=== PATIENT | male | born 1955 | race Caucasian/White ===

== ENCOUNTER → 2019-05-18 09:30 | Outpatient (CLI) | payer MEDICARE, SELFPAY ==
--- NOTE | 2019-05-18 09:34 | US_ITS ---
APPROVED REPORT Exam Type: Lower Extremity Segmental Pressures Route Delivery Manager: Kristina Law RVT Indications Claudication: Bilaterally Non-healing Ulcer: Rest Pain: Bilaterally History of Smoking ULCER LT HEEL X 2 MTHS, PRIOR AMPUTATION OF 2ND DIGIT LEFT FOOT Risk Factors Hypertension Hyperlipidemia Obesity Diabetes History of Smoking Pressures/Indices Right Indices Left Indices Brachial 188.00 mmHg Brachial 186.00 mmHg Low Thigh 255.00 mmHg 0.00 Low Thigh 173.00 mmHg 0.92 Calf 255.00 mmHg 0.00 Calf 162.00 mmHg 0.86 Ankle(PT) 158.00 mmHg 0.84 Ankle(PT) 140.00 mmHg 0.74 Ankle(DP) 178.00 mmHg 0.95 Ankle(DP) 185.00 mmHg 0.98 Digit 152.00 mmHg 0.81 Digit 165.00 mmHg 0.88 Findings RT MURTAZA:0.84 LT MURTAZA:0.74 RT TBI:0.81 LT TBI:0.88 WAVEFORMS DECREASED BILATERAL ANKLES PULSES DIMINISHED BILATERAL Conclusion RT MURTAZA:0.84 LT MURTAZA:0.74 RT TBI:0.81 LT TBI:0.88 WAVEFORMS DECREASED BILATERAL ANKLES PULSES DIMINISHED BILATERAL MILD TO MODERATE ARTERIAL DISEASE Medial calcinosis (rigid vessels) is suggested due to noncompressible thigh vessels on the right Electronically signed by : Emanuel Ferraro MD 05/18/2019 14:40:44
--- NOTE | 2019-05-18 10:02 | XR_ITS ---
PROCEDURE: XR FOOT WT BEARING RT 3V CLINICAL INDICATION: comparison views Pain, soft tissue ulceration COMPARISON: No exams were available for comparison FINDINGS: No fracture or dislocation. No lytic or blastic change. There is normal mineralization. There are mild osteoarthritic changes of the 1st MTP joint. There is a small calcaneal spur and a small enthesophyte at the Achilles insertion. Osteoarthritic changes are present at the ankle. Other findings:None. IMPRESSION: Degenerative changes otherwise negative Dictated by: Emanuel Ferraro MD 05/18/2019 10:49 Electronically signed by Emanuel Ferraro MD in [place] 05/18/2019 10:49
--- NOTE | 2019-05-18 10:02 | XR_ITS ---
PROCEDURE: XR FOOT WT BEARING LT 3V CLINICAL INDICATION: heel wound Pain, heel wound COMPARISON: No exams were available for comparison FINDINGS: There has been prior amputation at the distal aspect of the proximal phalanx of the 2nd toe There is a small calcaneal spur and a small enthesophyte at the Achilles insertion. Soft tissue gas is present along the posterior aspect of the heel and may be related to an area of ulceration. No underlying bony erosive process evident. Other findings:None. IMPRESSION: Soft tissue gas along the posterior aspect of the heel without obvious bony erosive process Dictated by: Emanuel Ferraro MD 05/18/2019 10:48 Electronically signed by Emanuel Ferraro MD in [place] 05/18/2019 10:48
[2019-05-18 10:52] LABS: Basophils # 0.1 K/mm3 (0-0.2); Basophils % 0.6 % (0.1-2.0); Eosinophils # 1.4 K/mm3 (0.0-0.4); Eosinophils % 14.6 % (0.1-12.0); Hematocrit 37.4 % (42.0-52.0); Hemoglobin 12.5 g/dL (14.1-18.0); Lymphocytes # 2.8 K/mm3 (0.7-4.5); Lymphocytes % 28.8 % (10-50); Mean Corpuscular HGB Conc 33.3 g/dL (31.8-35.4); Mean Corpuscular Hemoglobin 28.5 pg (27.0-31.2); Mean Corpuscular Volume 85.6 fl (80-94); Mean Platelet Volume 8.2 fl (7.4-10.4); Monocytes # 0.5 K/mm3 (0.1-1.0); Monocytes % 5.3 % (1.7-9.3); Neutrophils % 50.7 % (37.0-80.0); Platelet Count 396 K/mm3 (142-424); Red Blood Count 4.36 M/mm3 (4.60-6.20); Red Cell Distribution Width 13.1 % (11.5-17.5); White Blood Count 9.9 K/mm3 (4.8-10.8)
[2019-05-18 11:10] LABS: Hemoglobin A1C 9.5 % (4.0-6.0)
[2019-05-18 12:08] LABS: Erythrocyte Sedimentation Rate 77 mm/hr (0-20)
[2019-05-18 12:25] LABS: Alanine Aminotransferase 19 U/L (12-78); Albumin Level 3.8 g/dl (3.5-5.0); Albumin/Globulin Ratio 1.2 (1.1-1.8); Alkaline Phosphatase 120 U/L (38-126); Anion Gap 12.5 mEq/L (5-15); Aspartate Amino Transferase 21 U/L (17-59); Bilirubin,Total 0.4 mg/dl (0.2-1.3); Blood Urea Nitrogen 9 mg/dl (9-20); Calcium 9.4 mg/dl (8.4-10.2); Carbon Dioxide 30 mmol/L (22.0-30.0); Chloride 97 mmol/L (98-107); Estimated Glomerular Filt Rate 113 ml/min (>60); GFR (African American) 137 ML/MIN (>60); Globulin 3.2 g/dL (1.3-3.2); Glucose 233 mg/dl (74-100); Potassium 4.5 mmoL/L (3.5-5.1); Sodium 135 mmol/L (136-145)
[2019-05-18 12:30] LABS: C-Reactive Protein 15.5 mg/L (0-4)
== END ==
PROVIDERS: PCP Family Medicine; Visit Provider Podiatrist
DX: R09.89 Other specified symptoms and signs involving the circulatory and respiratory systems (principal); Z51.89 Encounter for other specified aftercare; E11.621 Type 2 diabetes mellitus with foot ulcer; L97.409 Non-pressure chronic ulcer of unspecified heel and midfoot with unspecified severity; Z79.84 Long term (current) use of oral hypoglycemic drugs; Z79.4 Long term (current) use of insulin
CPT/HCPCS: 36415; 73630; 80053; 83036; 85025; 85651; 86140; 93923

== ENCOUNTER → 2019-05-24 09:40 | Outpatient (CLI) | payer MEDICARE, SELFPAY ==
--- NOTE | 2019-05-24 09:40 | MR_ITS ---
PROCEDURE: MR FOOT LT WO/W CON CLINICAL INDICATION: diabetic ulcer Diabetic ulcer, pain in left heel, open wound COMPARISON: XR FOOT WT BEARING LT 3V from 05/18/2019 TECHNIQUE: Routine multiplanar multi echo sequences are performed without and with gadolinium enhancement. FINDINGS: Bone marrow edema is present within the posterior aspect of the calcaneus distal to the Achilles insertion. There is decreased T1 and increased T2 signal at this area with some ill definition of the posterior bony cortex. This is just deep to the underlying ulcer and is consistent osteomyelitis. There is some soft tissue swelling within the deep tissues at this area as well. There is also focal enhancement of this region. This involves the posterior and slightly lateral aspect of the posterior calcaneus. This is concerning for osteomyelitis. There is mild diffuse subcutaneous edema of the ankle posteriorly. No fracture or other significant anomalies evident. There are mild osteoarthritic changes of the 1st interphalangeal joint. IMPRESSION: The findings are concerning for osteomyelitis involving the posterior aspect of the calcaneus deep to the soft tissue ulceration Dictated by: Emanuel Ferraro MD 05/25/2019 10:47 Electronically signed by Emanuel Ferraro MD in [place] 05/25/2019 10:47
== END ==
PROVIDERS: PCP Family Medicine; Visit Provider Podiatrist
DX: E11.628 Type 2 diabetes mellitus with other skin complications (principal); L08.9 Local infection of the skin and subcutaneous tissue, unspecified; L89.620 Pressure ulcer of left heel, unstageable; Z79.4 Long term (current) use of insulin
CPT/HCPCS: 73720; A9576

== ENCOUNTER 2019-05-25 10:42 | Inpatient (IN) | payer MEDICARE, SELFPAY ==
[2019-05-25] VITALS (17 sets, daily range): BP systolic 140–187; BP diastolic 69–91; PULSE 66–82; RESP 16–18; TEMP 36.6–37.1; O2SAT 95–100; BMI 32.2; BMI 33.1
--- NOTE | 2019-05-25 | IR_ITS ---
APPROVED REPORT Patient Location: Inpatient [place] Operator: JANNY Mckee RT (R) PROCEDURES Right femoral arterial access Catheter placement in the distal abdominal aorta Distal abdominal aortography Bilateral iliofemoral angiography with bilateral runoff to the feet Catheter placement in the left superficial femoral artery Left superficial femoral artery selective angiogram with selective and unilateral runoff to the left foot Right femoral artery retrograde angiogram via the sheath with unilateral runoff to the right foot INDICATION Preoperative evaluation for poorly healing lower extremity osteomyelitis, Peripheral artery disease, [place] claudication class IV-V Informed consent was obtained prior to the procedure. COMPLICATIONS none Estimated Blood Loss: less than 10 mls TECHNIQUE 1% lidocaine used anesthetize the right groin the right femoral artery was accessed via the Salinger technique and a 5 [place] sheath this patient right femoral artery. The pigtail catheter was placed in the distal abdominal aorta and distal abdominal aortography was performed. Following this bilateral iliofemoral runoff was performed. Due to lack of contrast visualization in the bilateral lower extremities a 4 [place] BYNUM catheter was placed in the distal abdominal aorta and an advantage wire was used to cannulate the left superficial femoral artery. The BYNUM catheter was then advanced into the proximal portion of the left superficial femoral artery and unilateral angiography with runoff to the left foot was performed. Following this the apparatus was removed and unilateral runoff was then performed in the right groin via the sheath with runoff to the right foot. At the end of the procedure the patient was transferred to the postop holding area in stable condition following sheath removal. The sheath was removed in the Neurology Physician with good hemostasis. ANGIOGRAPHIC RESULTS The distal abdominal aorta is normal. The bilateral internal/external and common iliac arteries are normal. The bilateral common femoral arteries are normal. The bilateral profunda femoris arteries are normal. The bilateral superficial femoral arteries have mild [id number] atheromatous plaque The bilateral popliteal arteries have mild ims-xldn-iccjieyo atheromatous plaque The left anterior tibialis artery is patent in the proximal segment and then is subtotally occluded in its mid segment. There is a nice collateral network which then reconstitutes 2 cm distal to the occlusion and the anterior tibialis artery then continues with excellent flow to the left foot. The left peroneal artery is proximally occluded and has scant collateralization in the distal portion and supplies to a small degree the left foot. The left posterior tibialis artery is proximally occluded throughout its entire course with scant collateralization into the foot The right anterior tibialis artery has severe stenosis in the proximal segment and then is occluded. There is very scant recanalization as the anterior tibialis artery turns into the dorsalis pedis. The posterior tibialis artery is proximally occluded and never recannulate's distally. The left peroneal artery is proximally occluded and never recannulate's distally IMPRESSION Bilateral infrageniculate small vessel disease as described above all of which is too small for either surgical or percutaneous revascularization PLAN 1. Following surgery patient requires an aggressive physical therapy regimen in order to improve the distal scant collateralization. 2. Recommend aspirin 81 mg daily combined with Xarelto 2.5 twice daily 3. Aggressive control of kristine
--- NOTE | 2019-05-25 11:46 | XR_ITS ---
PROCEDURE: XR CHEST PORTABLE PICC PLAC CLINICAL HISTORY: Confirm PICC line placement COMPARISON: CXR CHEST(2 VIEWS-NOT PORTABLE) from 04/27/2013 FINDINGS: Normal heart size. No evidence of CHF. There is some mild prominence of the right hilum. This could be vascular overlap. Consider follow-up PA and lateral chest for further evaluation. The lungs are clear without infiltrates, suspicious nodules, or pleural effusions. Left upper extremity PICC line has been placed. The tip is in good position in the region of the superior vena cava. IMPRESSION: 1. PICC line in good position. 2. Mild prominence of the right hilum Dictated by: Emanuel Ferraro MD 05/25/2019 13:03 Electronically signed by Emanuel Ferraro MD in [place] 05/25/2019 13:03
--- NOTE | 2019-05-25 11:47 | HMH.CNCARD ---
History of Present Illness Consult date: 05/25/19 Requesting physician: Vazquez Randle Chief complaint: Osteomyelitis of left heel Additional Medical History:: 1. Diabetes mellitus type 2, treated for about 15 years A. Hemoglobin A1c, 9.5, 05/2019 2. History of remote tobacco use, discontinued greater than 10 years ago 3. Hyperlipidemia A. On statin therapy 4. PAD with mild to mod disease by MURTAZA, 05/2019 (left 0.7, right 0.8) but diminished waveforms noted (indicative of non-compressible vessels). A. Osteomyelitis of the left heel, 05/2019 5. Arthritis History of present illness: 63-year-old white male admitted by Dr. Randle with anticipation for surgical intervention of the osteomyelitis of his left heel tomorrow. Cardiology consulted for evaluation of the vascular flow in the left leg prior to surgery. Patient is a long-term diabetic with hemoglobin A1c of around 9. He denies any prior cardiac history and has not smoked for many years. He denies medication for hypertension but has been on hyperlipidemic medication for many years. EKG is sinus rhythm with no acute ST segment changes. [facility] History Medical History: Reports:: Diabetes Mellitus Type 2, Hyperlipidemia, Hypertension *Have you ever received a pneumonia vaccine?: Yes *Have you received a flu vaccine this season?: No Other Surgeries: Yes: Cholecystectomy, Skin Cancer Excision Amputation: Yes - *Social History Smoking Status: Never smoker Alcohol Intake: never *Occupational Status:: retired *Travel in the last 8 weeks: None Family Hx:: Unable to obtain Meds Home Medications Medication Instructions Recorded Confirmed Type aspirin 81 mg tablet,delayed 81 mg PO DAILY 05/18/19 05/25/19 History release atorvastatin 40 mg tablet PO 05/18/19 05/25/19 History collagenase clostridium histo. 250 1 applic TOPICAL QDAY #30 g 05/18/19 05/25/19 Rx unit/gram topical ointment doxycycline hyclate 100 mg tablet 100 mg PO BID #28 tab 05/18/19 05/25/19 Rx gabapentin 300 mg capsule 300 mg PO BID 05/18/19 05/25/19 History glimepiride 4 mg tablet mg PO 05/18/19 05/25/19 History insulin glargine 100 unit/mL SQ 05/18/19 05/25/19 History subcutaneous solution metformin 1,000 mg tablet mg PO 05/18/19 05/25/19 History Allergies Allergy/AdvReac Type Severity Reaction Status Date / Time No Known Allergies Allergy Verified 05/25/19 08:44 Review of Systems - Review of Systems Review of systems:: pertinent systems reviewed and negative unless documented below - *Cardiovascular Denies chest pain, Denies shortness of breath - *Respiratory Denies shortness of breath - *Gastrointestinal Denies loose stools, Denies nausea, Denies vomiting - *Genitourinary Denies blood in urine - *Musculoskeletal Reports joint pain, Denies back pain - *Neurologic Denies dizziness, Denies fainting, Denies tingling Exam Vital signs and Labs for Last 24 Hours: Temp Pulse Resp BP Pulse Ox 97.8 F 73 18 187/87 H 99 05/25/19 10:52 05/25/19 10:52 05/25/19 10:52 05/25/19 10:52 05/25/19 10:52 I & O for Last 24 hours: Intake & Output 05/22/19 05/23/19 05/24/19 05/25/19 11:59 11:59 11:59 11:59 Weight 218 lb 7 oz - *Routine HEENT Exam Head: Present: normocephalic Eye: Present: EOMI, PERRL ENT: Present: mucous membranes moist - *Routine Neck Exam Present: supple. Absent: JVD, carotid bruit - *Routine Respiratory Exam Present: CTA bilaterally. Absent: accessory muscle use, rales, rhonchi, wheezes - *Routine Cardiovascular Exam Present: RRR. Absent: murmur, gallop, rubs - *Routine Abdominal Exam Present: soft. Absent: tenderness, distended, guarding - *Routine Extremities Exam Present: edema. Absent: calf tenderness Comments: Edema of the left lower extremity below the knee noted. Patient's left foot and ankle are wrapped in bandage. - *Routine Neurological Exam Present: alert, oriented X3, moving a
--- NOTE | 2019-05-25 12:02 | CA_ITS ---
APPROVED REPORT EXAM: Comprehensive 2D, Doppler, and color-flow Echocardiogram Gynaecological Oncologist: Johana Mcmahon CRT Ht: 5 ft 9 in Wt: 218lbs BSA: 2.14 BP: 168/78 mmHg Indications: Diabetes, Obesity, Hyperlipidemia, Hypertension/HDD, pre op amputation of left heel in AM, PAD 2D Dimensions LVOT 1.87 cm (M/F) 1.5-2.5 M-Mode Dimensions RVDd 2.05 cm (0.9-2.6) LVDd 5.04 cm (3.5-5.7) LVDs 3.44 cm (3.5-5.7) IVSd 1.61 cm (0.6-1.1) PWd 0.74 cm (0.6-1.1) EF (Teich) 47.30% FS 23.80% EDV (Teich) 120.50 mL ESV (Teich) 63.50 mL LV Diastology E/A Ratio 0.62 Mitral Valve MV A Velocity 106.00 (40-130 cm/s) Left Ventricle Left atrium is mildly enlarged, left ventricle is normal size, mild concentric left ventricular hypertrophy, visually estimated ejection fraction 55% with no regional wall motion abnormality, grade 1 diastolic dysfunction seen without tissue Doppler evidence of raise left atrial pressure. Right atrium right ventricular mildly enlarged with normal contractility. Aortic Valve Aortic valve is thickened and calcified leaflet continue to display good mobility, there is no aortic stenosis or aortic insufficiency. Mitral Valve Mitral valve is grossly normal, there is mild mitral regurgitation. Tricuspid Valve Tricuspid valve is grossly normal, there is mild tricuspid regurgitation, calculated right ventricular systolic pressure is 43 mmHg. Pulmonic Valve Pulmonic valve is poorly visualized. Great Vessels Aortic root is normal size. Pericardium No significant pericardial effusion noted. Conclusion 1. Mildly enlarged left atrium, normal left ventricular size, mild concentric left ventricular hypertrophy, visually estimated ejection fraction 55% with no regional wall motion abnormality, grade 1 diastolic dysfunction seen without tissue Doppler evidence of raise left atrial pressure. 2. Mildly enlarged right ventricle with normal contractility. 3. Mild mitral and tricuspid regurgitation, calculated right ventricular systolic pressure is 43 mmHg. 4. No significant pericardial effusion noted. Electronically signed by : Blaine Mcconnell, 05/25/2019 17:34:14
--- NOTE | 2019-05-25 12:08 | HMH.PHACONS ---
- Pharmacy Consult Date: 05/25/19 Time: 12:08 Referring provider: DR. UPTON Reason for Consult:: VANCOMYCIN DOSING Allergies and ADEs:: Allergies Allergy/AdvReac Type Severity Reaction Status Date / Time No Known Allergies Allergy Verified 05/25/19 08:44 Home Medications:: Home Medications Medication Instructions Recorded Confirmed Type aspirin 81 mg tablet,delayed 81 mg PO DAILY 05/18/19 05/25/19 History release atorvastatin 40 mg tablet PO 05/18/19 05/25/19 History collagenase clostridium histo. 250 1 applic TOPICAL QDAY #30 g 05/18/19 05/25/19 Rx unit/gram topical ointment doxycycline hyclate 100 mg tablet 100 mg PO BID #28 tab 05/18/19 05/25/19 Rx gabapentin 300 mg capsule 300 mg PO BID 05/18/19 05/25/19 History glimepiride 4 mg tablet mg PO 05/18/19 05/25/19 History insulin glargine 100 unit/mL SQ 05/18/19 05/25/19 History subcutaneous solution metformin 1,000 mg tablet mg PO 05/18/19 05/25/19 History Height: 1.75 m Weight: 99.082 kg Medical History: Reports:: Diabetes Mellitus Type 2, Hyperlipidemia, Hypertension Assessment and Plan (1) Osteomyelitis of left foot Current visit: Yes Status: Acute Category: Medical Code(s): M86.9 - Osteomyelitis, unspecified (2) Diabetes mellitus type 2 in nonobese Current visit: Yes Status: Acute Category: Medical Code(s): E11.9 - Type 2 diabetes mellitus without complications (3) Hyperlipidemia Current visit: Yes Status: Acute Category: Medical Code(s): E78.5 - Hyperlipidemia, unspecified (4) Elevated blood pressure reading Current visit: Yes Status: Acute Category: Medical Code(s): R03.0 - Elevated blood-pressure reading, without diagnosis of hypertension (5) Diabetic neuropathy associated with type 2 diabetes mellitus Current visit: No Status: Acute Qualifiers: Diabetes mellitus complication detail: diabetic polyneuropathy Qualified Code(s): E11.42 - Type 2 diabetes mellitus with diabetic polyneuropathy Category: Medical Code(s): E11.40 - Type 2 diabetes mellitus with diabetic neuropathy, unspecified (6) History of amputation of lesser toe of left foot Current visit: No Status: Acute Category: Surgical Code(s): Z89.422 - Acquired absence of other left toe(s) (7) Obesity, Class I, BMI 30-34.9 Current visit: No Status: Chronic Category: Medical Code(s): E66.9 - Obesity, unspecified (8) PAD (peripheral artery disease) Current visit: No Status: Chronic Category: Medical Code(s): I73.9 - Peripheral vascular disease, unspecified - Assessment and plan all Dx Assessment and Plan for all problems:: BASED ON PATIENT FACTORS, RECOMMEND INITIATING VANCOMYCIN AT 2,000MG IV EVERY 12 HOURS. PHARMACY WILL OBTAIN TROUGH LEVEL PRIOR TO FOURTH DOSE AND WILL ADJUST DOSE/INTERVAL APPROPRIATE AT THAT POINT. -ROMANA WAITE, [place]
[2019-05-25 12:14] LABS: Chloride 99 mmol/L (98-107); Potassium 4.4 mmoL/L (3.5-5.1); Sodium 136 mmol/L (136-145)
[2019-05-25 12:16] LABS: Alanine Aminotransferase 17 U/L (12-78); Aspartate Amino Transferase 23 U/L (17-59); Blood Urea Nitrogen 10 mg/dl (9-20); Creatinine Clearance Estimated 103 mL/min (50-200); Estimated Glomerular Filt Rate 113 ml/min (>60); GFR (African American) 137 ML/MIN (>60)
[2019-05-25 12:17] LABS: Albumin Level 3.7 g/dl (3.5-5.0); Albumin/Globulin Ratio 1.1 (1.1-1.8); Alkaline Phosphatase 105 U/L (38-126); Anion Gap 12.4 mEq/L (5-15); Bilirubin,Total 0.5 mg/dl (0.2-1.3); Calcium 9.1 mg/dl (8.4-10.2); Carbon Dioxide 29 mmol/L (22.0-30.0); Globulin 3.5 g/dL (1.3-3.2); Glucose 188 mg/dl (74-100); Total Protein,Serum 7.2 g/dl (6.3-8.2)
[2019-05-25 12:28] LABS: Basophils % 0.3 % (0.1-2.0); Eosinophils # 0.9 K/mm3 (0.0-0.4); Eosinophils % 8.7 % (0.1-12.0); Hematocrit 36.8 % (42.0-52.0); Lymphocytes # 3.4 K/mm3 (0.7-4.5); Lymphocytes % 33.6 % (10-50); Mean Corpuscular HGB Conc 32.7 g/dL (31.8-35.4); Mean Corpuscular Hemoglobin 28.6 pg (27.0-31.2); Mean Corpuscular Volume 87.6 fl (80-94); Mean Platelet Volume 8.5 fl (7.4-10.4); Monocytes # 0.5 K/mm3 (0.1-1.0); Monocytes % 4.5 % (1.7-9.3); Neutrophils # 5.3 K/mm3 (1.8-7.8); Neutrophils % 52.9 % (37.0-80.0); Platelet Count 396 K/mm3 (142-424); Red Cell Distribution Width 13.4 % (11.5-17.5)
[2019-05-25 13:13] LABS: POC Glucose,Bedside 177 (70-110)
--- NOTE | 2019-05-25 13:31 | HMH.PHAINT ---
MEDICATION RECONCILIATION COMPLETE. OBTAINED MEDICATION LIST FROM PROVIDER AND CROSS REFERENCED WITH PHARMACY FILL HISTORY. SPOKE WITH PATIENT TO CLARIFY LANTUS DOSE (35 UNITS QPM BETWEEN 7 AND 8 PM), GABAPENTIN DOSE, DOXYCYCLINE, SANTYL, AND ALIGN USE. PATIENT DENIES USING ALIGN DUE TO IT NOT HELPING. UPDATED MEDICATION LIST ACCORDINGLY.
--- NOTE | 2019-05-25 14:15 | HMH.PHAVTE ---
[facility] Pharmacy VTE Monitoring - Patient Demographics Admission date: 05/25/19 Report Date: 05/25/19 Time: 14:15 Allergies/Adverse Reactions: Patient Allergies No Known Allergies Allergy (Verified 05/25/19 08:44) Height: 1.75 m Weight: 99.082 kg Patient Problems: Current Active Problems Osteomyelitis of left foot (Acute) Diabetes mellitus type 2 in nonobese (Acute) Hyperlipidemia (Acute) Elevated blood pressure reading (Acute) - VTE Risk Labs: VTE Related Lab Results Hgb 12.0 g/dL (14.1-18.0) L 05/25/19 11:40 Hct 36.8 % (42.0-52.0) L 05/25/19 11:40 Plt Count 396 K/mm3 (142-424) 05/25/19 11:40 BUN 10 mg/dl (9-20) 05/25/19 11:40 Creatinine 0.70 mg/dl (0.66-1.25) 05/25/19 11:40 Estimated Creat Clear 103 mL/min (50-200) 05/25/19 11:40 Clinical Trial Participant: No - Prophylaxis VTE Prophylaxis Ordered?: Yes Types of VTE Prophylaxis: TEDS Knee High (TO UNAFFECTED LEG)
--- NOTE | 2019-05-25 14:25 | HMH.ORTHOCON ---
*Admission Date: 05/25/19 *Reason for consult:: Left heel osteomyelitis *History of present illness: Mr. Murray presented to my office for a follow up appointment for a wound on his left heel. He reports no changes to the heel. His has been doing daily dressing changes with santyl and DSD. He continues to take the doxycycline 100mg BID and reports no problems with the antibiotic. He recently had an MURTAZA and MRI and is here to review the tests. Upon office visit exam, worsening edema and erythema noted to the heel. Aminta Ely APRN discussed plan of care with PCP team, Dr. Randle who agreed to admit the patient for cardiac workup and evaluation of abnormal ABIs. Podiatry plans for left heel wound debridement, bone biospy and possible wound vac application tomorrow if cardiolgoy clears. Review of Systems - Review of Systems Review of systems:: pertinent systems reviewed and negative unless documented below - Constitutional Reports fatigue, Denies chills - Eyes Reports change in vision - ENT Denies abnormal hearing - *Cardiovascular Denies chest pain - *Respiratory Denies cough - *Gastrointestinal Denies change in bowel habits, Denies vomiting - *Genitourinary Denies difficulty urinating - *Musculoskeletal Reports joint swelling - Integumentary/Breasts Reports hair loss, Reports change in hair, Reports nail changes, Reports change in skin color, Reports dry skin, Reports non-healing lesions, Reports skin ulcer - *Neurologic Reports tingling/numbness/burning sensations, Denies dizziness, Denies fainting, Denies tingling - Psychiatric Denies abnormal sleep pattern - Endocrine Reports increased thirst - Hematologic/Lymphatic Denies easy bleeding - Allergic/Immunologic Reports GI upset with certain foods [facility] History I have reviewed the patient's past medical history: Yes Medical History: Reports:: Diabetes Mellitus Type 2, Hyperlipidemia, Hypertension *Have you ever received a pneumonia vaccine?: Yes *Have you received a flu vaccine this season?: No Other Surgeries: Yes: Cholecystectomy, Skin Cancer Excision Amputation: Yes (L 2nd toe) - *Social History Smoking Status: Never smoker Alcohol Intake: never *Occupational Status:: retired *Travel in the last 8 weeks: None Family Hx:: Unable to obtain Meds Home Medications Medication Instructions Recorded Confirmed Type aspirin 81 mg tablet,delayed 81 mg PO DAILY 05/18/19 05/25/19 History release atorvastatin 40 mg tablet 40 mg PO DAILY 05/18/19 05/25/19 History gabapentin 300 mg capsule 600 mg PO BID 05/18/19 05/25/19 History glimepiride 4 mg tablet 4 mg PO DAILY 05/18/19 05/25/19 History insulin glargine 100 unit/mL 35 units SQ PM 05/18/19 05/25/19 History subcutaneous solution metformin 1,000 mg tablet 1,000 mg PO BID 05/18/19 05/25/19 History Collagenase Clostridium Hist. 1 applic TOPICAL DAILY 05/25/19 05/25/19 History [Santyl] Doxycycline Hyclate [Vibra-Tab 100 mg PO BID 05/25/19 05/25/19 History 100mg tablet] Vit A/Vit C/Vit E/Zinc/Copper 1 tab PO DAILY 05/25/19 05/25/19 History [Preservision Areds Tablet] Allergies Allergy/AdvReac Type Severity Reaction Status Date / Time No Known Allergies Allergy Verified 05/25/19 08:44 Exam Vital signs and Labs for Last 24 Hours: Temp Pulse Resp BP Pulse Ox 97.8 F 73 18 187/87 H 99 05/25/19 10:52 05/25/19 10:52 05/25/19 10:52 05/25/19 10:52 05/25/19 10:52 Laboratory Results - last 24 hr 05/25/19 11:40: WBC 10.0, RBC 4.20 L, Hgb 12.0 L, Hct 36.8 L, MCV 87.6, MCH 28.6, MCHC 32.7, RDW 13.4, Plt Count 396, MPV 8.5, Neut % (Auto) 52.9, Lymph % (Auto) 33.6, [place] % (Auto) 4.5, Eos % (Auto) 8.7, Baso % (Auto) 0.3, Neut # (Auto) 5.3, Lymph # (Auto) 3.4, [place] # (Auto) 0.5, Eos # (Auto) 0.9 H, Baso # (Auto) 0.0 05/25/19 11:40: Sodium 136, Potassium 4.4, Chloride 99, Carbon Dioxide 29, Anion Gap 12.4, BUN 10, Creatinine 0.70, Estimated Creat Clear 103, Estimated
[2019-05-25 15:25] LABS: Erythrocyte Sedimentation Rate 76 mm/hr (0-20)
--- NOTE | 2019-05-25 15:47 | PC.NURSE ---
Spoke with Dr. Lin regarding surgery in AM that was scheduled pre hospital stay- she said to call Kamille Rawls and cancel surgery.
--- NOTE | 2019-05-25 16:02 | PC.NURSE ---
Spoke with Terrence from Dr. Reed office they have decided to schedule patients surgery for tomorrow at 11:15.
--- NOTE | 2019-05-25 16:15 | HMH.HP ---
*Admission Date: 05/25/19 <Katlyn Antunez 05/25/19 16:57> *Chief complaint: Nonhealing left heel wound <Katlyn Antunez 05/25/19 16:57> *History of present illness: Mr. Murray presented to my office for a follow up appointment for a wound on his left heel. He reports no changes to the heel. His has been doing daily dressing changes with santyl and DSD. He continues to take the doxycycline 100mg BID and reports no problems with the antibiotic. He recently had an MURTAZA and MRI and is here to review the tests. Upon office visit exam, worsening edema and erythema noted to the heel. Aimnta Ely APRN discussed plan of care with PCP team, Dr. Randle who agreed to admit the patient for cardiac workup and evaluation of abnormal ABIs. Podiatry plans for left heel wound debridement, bone biospy and possible wound vac application tomorrow if cardiolgoy clears. The above as per Dr. Lin At time of this assessment patient is lying comfortably in the bed after procedure. He is thirsty and hungry. He denies pain in the left foot. He is breathing easily without chest pain. He has been seen by cardiology with the following assessment/plan: Left lower extremity runoff of the left leg with potential intervention to maximize blood flow in anticipation of podiatry surgery of the left heel 05/26/2019. He has been started on carvedilol. PICC line has been inserted for IV antibiotics. He will have an EKG and an echocardiogram. <HarmonyKatlyn 05/25/19 16:57> [facility] History Medical History: Reports:: Diabetes Mellitus Type 2, Gastroesophageal Reflux Disease(GERD), Hyperlipidemia, Hypertension, Kidney Stones <HarmonyKatlyn 05/25/19 16:57> *Have you ever received a pneumonia vaccine?: Yes <Katlyn Antunez 05/25/19 16:57> *Have you received a flu vaccine this season?: No <Katlyn Antunez 05/25/19 16:57> Comment:: Diabetic neuropathy and retinopathy; lumbar disc herniation. <Katlyn Antunez 05/25/19 16:57> Other Surgeries: Yes: Cholecystectomy, Skin Cancer Excision <Katlyn Antunez 05/25/19 16:57> Amputation: Yes (L 2nd toe) <Katlyn Antunez 05/25/19 16:57> Comment: Cyst removal; stent for kidney stone removal 2009; second toe amputation on left foot. <HarmonyKatlyn Estiven 05/25/19 16:57> - *Social History Smoking Status: Never smoker <AntunezKatlyn Estiven 05/25/19 16:57> Alcohol Intake: never <AntunezKatlyn 05/25/19 16:57> *Occupational Status:: retired <AntunezKatlyn 05/25/19 16:57> *Travel in the last 8 weeks: None <Katlyn Antunez Estiven 05/25/19 16:57> Family Hx:: Unable to obtain <Katlyn Antunez Estiven 05/25/19 16:57> Review of Systems - Constitutional Denies headache(s), Denies weakness <AntunezKatlyn 05/25/19 16:57> - Eyes Reports change in vision (Due to his diabetes) <Antunez,Katlyn Estiven 05/25/19 16:57> - ENT Denies ear pain, Denies sore throat <AntunezKatlyn 05/25/19 16:57> - *Cardiovascular Denies chest pain, Denies shortness of breath, Denies irregular heart rhythm, Denies leg swelling <AntunezKatlyn 05/25/19 16:57> - *Respiratory Denies chest congestion, Denies cough, Denies shortness of breath <Katlyn Antunez 05/25/19 16:57> - *Gastrointestinal Reports bloating, Reports change in bowel habits, Reports constipation, Reports heartburn, Reports loose stools, Reports nausea, Denies abdominal pain, Denies vomiting <AntunezKatlyn Estiven 05/25/19 16:57> - *Genitourinary Denies difficulty urinating <Antunez,Katlyn 05/25/19 16:57> - *Musculoskeletal Reports abnormal walking (Walks with the support of a crutch) <Antunez,Katlyn 05/25/19 16:57> - *Neurologic Reports tingling/numbness/burning sensations, Denies abnormal hearing, Denies dizziness, Denies frequent falls, Denies fainting, Denies tingling <HarmonyKatlyn - 05/25/19 16:57> Meds Home Medications Medication Instructions Recorded Confirmed Type aspirin 81 mg tablet,delayed 81 mg PO DAILY 05/18/19 05/25/19 History release atorvastatin 40 mg tablet 40 mg PO DA
[2019-05-25 18:09] LABS: POC Glucose,Bedside 132 (70-110)
--- NOTE | 2019-05-25 18:55 | PC.NURSE ---
PATIENT ARRIVED ON FLOOR AT 1050AM. IMMEDIATELY PICC LINE WAS ORDERED AND PLACED, XRAY AT BEDSIDE FOR CONFIRMATION, PATIENT TAKEN TO [facility] FOR PROCEDURE. PATIENT RETURNED TO FLOOR AT 1600. PATIENT A&O X4, LUNGS DIMINSHED, PULSES EQUAL, CATH SITE CLEAN AND DRY. PATIENT REMAINED FLAT UNTIL 1700. PATIENT AMBULATED TO RESTROOM WITH 2X ASSIST. PATIENT BECAME UNSTABLE ON FEET AFTER USING RESTROOM. PATIENT ASSISTED BACK TO BED. PATIENT SAT ON SIDE OF BED TO EAT DINNER AND TOLERATED WELL. AT 1845 PATIENT CALLED OUT TO USE RESTROOM. WITH STANDBY ASSIST PATIENT AMBULATED TO RESTROOM. PATIENT WAS INSTRUCTED TO PULL THE LINE WHEN FINISHED. THIS RN WENT INTO ROOM AND PATIENT WAS STILL IN RESTROOM, THIS RN INQUIRED IF PATIENT WAS OKAY AND PATIENT STATED YES. THIS RN WENT BACK INTO ROOM 2 MIN LATER AND PATIENT WAS SITTING ON SIDE OF BED. THIS RN EDUCATED PATIENT ABOUT CALLING FOR ASSISTANCE WHEN AMBULATING. PATIENT VERBALIZED AN UNDERSTANDING. NO OTHER CONCERNS AT THIS TIME.
[2019-05-25 21:07] LABS: POC Glucose,Bedside 216 (70-110)
[2019-05-26] VITALS (25 sets, daily range): BP systolic 120–178; BP diastolic 67–88; PULSE 67–78; RESP 16–20; TEMP 36.6–43; O2SAT 94–99; BMI 33.2; BMI 33.3
--- NOTE | 2019-05-26 04:40 | PC.NURSE ---
Pt does not appear satisfied with poc, often remarking in negative ways. Example, during 2100 med pass, pt ask if he had any pain medication, I advised none ordered but I could call MD to get some. Pt replied, No I don't want you to call, I'm not begging them for it, it is on my medication list and they know I take it and I need it, so not asking for it. Continued discussion asking again to call the doctor for pain med, pt replied, No. Post op vital signs remained close in number with BP running on the higher side, but came down to 140/73 at 2215. Right groin site dressing c.d.i, surrounding area soft, no hematoma noted. Discussed being ordered NPO after midnight, pt replied, I guess the are going to starve me to all day again tomorrow. Advised surgery scheduled for 1130, could be earlier and needed to be prepared. Pt replied, I didn't get to eat today until 1630, so I'll have to go through that again. Pt also c/o being cold and not being able to sleep. Warm blankets offered, pt did not want any. I already have a pile of blankets on now, I don't need anymore. 0100 ABX infused well with no problems, -216, medicated per APR. Pt presently sleeping with no objective s/s of pain or distress identified, monitoring continues.
[2019-05-26 06:17] LABS: POC Glucose,Bedside 142 (70-110)
--- NOTE | 2019-05-26 08:23 | HMH.ACPN2 ---
<Alta Zaidi - Last Filed: 05/26/19 08:23> Internal Medicine - PN: Subj *Date: 05/26/19 *Time: 08:23 Interval history: Patient is upset that some of his home medications were not reordered last night, particularly his gabapentin. He states he is having pain in his left foot and in his back and his legs as well. He did not rest well last night. Patient is supposed to be scheduled for a left heel wound debridement today by Dr. Lin. Exam Vital signs and Labs for Last 24 Hours: Temp Pulse Resp BP Pulse Ox 98.2 F 72 18 178/80 H 98 05/26/19 04:00 05/26/19 04:00 05/26/19 04:00 05/26/19 04:00 05/26/19 04:00 Laboratory Results - last 24 hr 05/25/19 11:40: WBC 10.0, RBC 4.20 L, Hgb 12.0 L, Hct 36.8 L, MCV 87.6, MCH 28.6, MCHC 32.7, RDW 13.4, Plt Count 396, MPV 8.5, Neut % (Auto) 52.9, Lymph % (Auto) 33.6, [place] % (Auto) 4.5, Eos % (Auto) 8.7, Baso % (Auto) 0.3, Neut # (Auto) 5.3, Lymph # (Auto) 3.4, [place] # (Auto) 0.5, Eos # (Auto) 0.9 H, Baso # (Auto) 0.0, ESR 76 H 05/25/19 11:40: Sodium 136, Potassium 4.4, Chloride 99, Carbon Dioxide 29, Anion Gap 12.4, BUN 10, Creatinine 0.70, Estimated Creat Clear 103, Estimated GFR 113, Est GFR ( Amer) 137, Glucose 188 H, Calcium 9.1, Total Bilirubin 0.5, AST 23, ALT 17, Alkaline Phosphatase 105, Total Protein 7.2, Albumin 3.7, Globulin 3.5 H, Albumin/Globulin Ratio 1.1 05/25/19 13:04: POC Glucose 177 H 05/25/19 17:51: POC Glucose 132 H 05/25/19 20:26: POC Glucose 216 H 05/26/19 06:09: POC Glucose 142 H I & O for Last 24 hours: Intake & Output 05/23/19 05/24/19 05/25/19 05/26/19 11:59 11:59 11:59 11:59 Intake Total 480 / 480 Balance 480 / 480 Weight 224 lb 8 oz 224 lb 8 oz Radiology Reports for the Last 24 Hours: Echo Conclusion 1. Mildly enlarged left atrium, normal left ventricular size, mild concentric left ventricular hypertrophy, visually estimated ejection fraction 55% with no regional wall motion abnormality, grade 1 diastolic dysfunction seen without tissue Doppler evidence of raise left atrial pressure. 2. Mildly enlarged right ventricle with normal contractility. 3. Mild mitral and tricuspid regurgitation, calculated right ventricular systolic pressure is 43 mmHg. 4. No significant pericardial effusion noted. - Constitutional no acute distress - *Routine Respiratory Exam Present: CTA bilaterally - *Routine Cardiovascular Exam Present: RRR - *Routine Abdominal Exam Present: soft, normoactive bowel sounds. Absent: tenderness - *Routine Extremities Exam Present: edema (LLE 2+). Absent: cyanosis, clubbing - *Routine Skin Exam Comments: left heel with bandage in place - *Routine Neurological Exam Present: alert, oriented X3 Assessment and Plan (1) PAD (peripheral artery disease) Status: Chronic Category: Medical Code(s): I73.9 - Peripheral vascular disease, unspecified (2) Osteomyelitis of left foot Status: Acute Category: Medical Code(s): M86.9 - Osteomyelitis, unspecified (3) Hyperlipidemia Status: Acute Category: Medical Code(s): E78.5 - Hyperlipidemia, unspecified (4) Elevated blood pressure reading Status: Acute Category: Medical Code(s): R03.0 - Elevated blood-pressure reading, without diagnosis of hypertension (5) Diabetic neuropathy associated with type 2 diabetes mellitus Status: Acute Qualifiers: Diabetes mellitus complication detail: diabetic polyneuropathy Qualified Code(s): E11.42 - Type 2 diabetes mellitus with diabetic polyneuropathy Category: Medical Code(s): E11.40 - Type 2 diabetes mellitus with diabetic neuropathy, unspecified (6) History of amputation of lesser toe of left foot Status: Acute Category: Surgical Code(s): Z89.422 - Acquired absence of other left toe(s) (7) Obesity, Class I, BMI 30-34.9 Status: Chronic Category: Medical Code(s): E66.9 - Obesity, unspecified (8) Diabetic foot infection Status: Acute Category: Medica
--- NOTE | 2019-05-26 09:31 | HMH.ANESCL ---
[facility] Anesthesia Checklist - Patient Identification Patient Identification: Arm Band, Verbal (Name & ) - Structural Data Admitted From: Inpatient Planned Operative Procedure/s: left heel debridement Consent for Planned Operative Procedure(s) Verified: Yes Verified Documents: History and Physical - NPO Status Verified Time NPO: 00:00 - Additional verifications Patient : No Anesthesia Reactions: No Hx Blood Transfusions: No Blood Transfusion Reaction: No Cephalosporin Allergy: No Previous Colonoscopy: No - Cardiovascular Assessment Heart Sounds: S1 & S2 Pulse Strength: Baseline Pulse Rhythm: Regular Peripheral Edema: No - Airway Assessment C-Spine Mobility Assessed: Yes TMJ Mobility Assessed: Yes Dentition: Edentulous - Neurological Assessment Level of Consciousness: Awake, Alert, Appropriate Hx Seizures: No Numbness or tingling in extremities: No - Anesthesia Plan Anesthesia Risk discussed: Yes Anesthesia Plan: Verified ASA Class: III Anesthesia Type: General [facility] History I have reviewed the patient's past medical history: Yes Medical History: Reports:: Cancer (skin), Diabetes Mellitus Type 2, Gastroesophageal Reflux Disease(GERD), Hyperlipidemia, Hypertension, Kidney Stones *Have you ever received a pneumonia vaccine?: Yes *Have you received a flu vaccine this season?: No Anesthesia experience/problems:: none Other Surgeries: Yes: Cholecystectomy, Skin Cancer Excision, Other Amputation: Yes (L 2nd toe) - *Social History Smoking Status: Former smoker Alcohol Intake: never Substance Use Type: other *Occupational Status:: retired, disabled Housing: house Household Members: spouse, children *Travel in the last 8 weeks: None Family Hx:: Unable to obtain
--- NOTE | 2019-05-26 10:30 | ECG_ITS ---
APPROVED REPORT Exam: Resting ECG HR:76 bpm ECG Measurements Heart Rate 76 AXES RI 96 P 39 QRSd 90 QRS 45 QT 418 T -18 QTc 470 <Conclusion> Sinus rhythm with short RI Poor R Wave Progression T wave abnormality, consider inferior ischemia Abnormal ECG Electronically signed by : Jovany Bowman, 05/26/2019 16:26:05
--- NOTE | 2019-05-26 10:36 | HMH.PNCARD ---
Subjective Date: 05/26/19 Time: 10:30 Principal diagnosis: PAD, Let heel wound Interval history: This is a 63-year-old gentleman who was admitted to the hospital for a left heel wound. He is scheduled to undergo left heel debridement today with Dr. Lin. The patient did undergo a runoff yesterday which showed bilateral infrageniculate small vessel disease which is too small for percutaneous or surgical intervention. Following his left heel debridement it is recommended that the patient go on aspirin 81 mg daily combined with Xarelto 2.5 mg daily. This morning he denies any chest pain or pressure. He denies any shortness of breath. He denies any fever, chills, nausea, vomiting, diarrhea, PND, orthopnea or cough. He states that he does have some edema in his left leg from his wound on his left foot. He is complaining of pain in his left leg. His gabapentin did not get started while he is in the hospital and he is upset about that. His primary care provider is taking care of this. No cardiac complaints today. Exam Vital signs and Labs for Last 24 Hours: Temp Pulse Resp BP Pulse Ox 98.2 F 72 18 178/80 H 98 05/26/19 04:00 05/26/19 04:00 05/26/19 04:00 05/26/19 04:00 05/26/19 04:00 Laboratory Results - last 24 hr 05/25/19 11:40: WBC 10.0, RBC 4.20 L, Hgb 12.0 L, Hct 36.8 L, MCV 87.6, MCH 28.6, MCHC 32.7, RDW 13.4, Plt Count 396, MPV 8.5, Neut % (Auto) 52.9, Lymph % (Auto) 33.6, [place] % (Auto) 4.5, Eos % (Auto) 8.7, Baso % (Auto) 0.3, Neut # (Auto) 5.3, Lymph # (Auto) 3.4, [place] # (Auto) 0.5, Eos # (Auto) 0.9 H, Baso # (Auto) 0.0, ESR 76 H 05/25/19 11:40: Sodium 136, Potassium 4.4, Chloride 99, Carbon Dioxide 29, Anion Gap 12.4, BUN 10, Creatinine 0.70, Estimated Creat Clear 103, Estimated GFR 113, Est GFR ( Amer) 137, Glucose 188 H, Calcium 9.1, Total Bilirubin 0.5, AST 23, ALT 17, Alkaline Phosphatase 105, Total Protein 7.2, Albumin 3.7, Globulin 3.5 H, Albumin/Globulin Ratio 1.1 05/25/19 13:04: POC Glucose 177 H 05/25/19 17:51: POC Glucose 132 H 05/25/19 20:26: POC Glucose 216 H 05/26/19 06:09: POC Glucose 142 H I & O for Last 24 hours: Intake & Output 05/23/19 05/24/19 05/25/19 05/26/19 23:59 23:59 23:59 23:59 Intake Total 240 / 480 240 / 240 Balance 240 / 480 240 / 240 Weight 224 lb 8 oz 224 lb 8 oz Narrative: Echo shows: 1. Mildly enlarged left atrium, normal left ventricular size, mild concentric left ventricular hypertrophy, visually estimated ejection fraction 55% with no regional wall motion abnormality, grade 1 diastolic dysfunction seen without tissue Doppler evidence of raise left atrial pressure. 2. Mildly enlarged right ventricle with normal contractility. 3. Mild mitral and tricuspid regurgitation, calculated right ventricular systolic pressure is 43 mmHg. 4. No significant pericardial effusion noted. Runoff shows: Bilateral infrageniculate small vessel disease as described above all of which is too small for either surgical or percutaneous revascularization PLAN 1. Following surgery patient requires an aggressive physical therapy regimen in order to improve the distal scant collateralization. 2. Recommend aspirin 81 mg daily combined with Xarelto 2.5 twice daily 3. Aggressive control of diabetes 4. LDL less than 55 5. Avoidance of tobacco products - Constitutional no acute distress, obese - *Routine HEENT Exam Head: Present: normocephalic, atraumatic Eye: Present: EOMI, PERRL ENT: Present: mucous membranes moist - *Routine Neck Exam Present: supple, full ROM, normal carotid upstroke. Absent: JVD, carotid bruit, lymphadenopathy - *Routine Respiratory Exam Present: CTA bilaterally - *Routine Cardiovascular Exam Present: RRR, Normal S1, Normal S2. Absent: murmur - *Routine Abdominal Exam Present: soft, normoactive bowel sounds. Absent: tenderness, distended - *Routine Extremities Exam Present: edema (Edema to the left lower extremity), full RO
--- NOTE | 2019-05-26 11:17 | HMH.ORTHPN ---
Subjective Date: 05/26/19 <Shelbi Ely - 05/26/19 12:56> Time: 08:20 <Shelbi Ely - 05/26/19 12:56> Principal diagnosis: PAD, Let heel wound <Shelbi Ely - 05/26/19 12:56> Interval history: Patient doing well this morning, no complaints throughout the night. Patient is NPO for his surgery sometime this morning. Dressing is clean dry and intact to his left heel. From what I could see it didn't look like the cellulitis and redness had extended beyond the purple marker tracing's from yesterday, which is a good. Patient did get his picc line placed yesterday in his left upper arm and has been getting Vancoymcin and Rocephin 2gm and tolerating them well. <Shelbi Ely - 05/26/19 12:56> PN: Obj Ex Vital signs: Temp Pulse Resp BP Pulse Ox 98.0 F 69 18 152/88 H 95 05/26/19 15:16 05/26/19 15:16 05/26/19 14:55 05/26/19 15:16 05/26/19 14:55 <Serina Lin - 05/26/19 15:35> Temp Pulse Resp BP Pulse Ox 98.2 F 72 18 178/80 H 98 05/26/19 04:00 05/26/19 04:00 05/26/19 04:00 05/26/19 04:00 05/26/19 04:00 <Shelbi Ely - 05/26/19 11:33> - Constitutional no acute distress <Shelbi Ely - 05/26/19 12:56> - Routine HEENT Exam Head: Present: normocephalic <DiegoperfectoShelbi Leanna - 05/26/19 12:56> Eye: Present: PERRL <DiegoperfectoShelbi Leanna - 05/26/19 12:56> ENT: Present: mucous membranes moist <DiegoperfectoShelbi Leanna - 05/26/19 12:56> - Routine Neck Exam Present: full ROM. Absent: JVD <SolisShelbi L - 05/26/19 12:56> - Routine Respiratory Exam Absent: accessory muscle use, respiratory distress <Shelbi Ely 05/26/19 12:56> - Routine Cardiovascular Exam Present: RRR <Shelbi Ely 05/26/19 12:56> - Routine Abdominal Exam Present: soft <Shelbi Ely 05/26/19 12:56> - Detailed Lower Extremity Exam Bottom foot image: 1 - 1 - Toenails thick and elongated. Ulcer noted to the left heel. There is thick alexandra wound callus noted. Area of black intact eschar and ring of granular tissue. New ascending cellulitis noted. No cheryle purulence noted. Feet cool with bluish hue to the digits. No pedal hair growth. Left 2nd toe amputation. Moderate dorsal medial eminence noted bilaterally. Second digit has rigid PIPJ contracture to the right. Prior Left 2nd toe amputation. Semi-rigid PIPJ contractures noted on digits 3-4. Adductovarus rotation noted to the fifth digit bilaterally. Muscle strength wnl b/l, moderate arch height b/l, no pain noted with active or passive ROM of the ankle, STJ or midtarsal joints, gastroc-soleus equinus b/l. Wound Length: 8.0 x width: 6.5 x depth: 0.2cm. Wound Bed Appearance: [place], Charred, Shiny, Eschar (4x3x0.0cm area of eschar within the wound), Peeling Skin: Percentage Granulated: 20, Percentage of Slough: 30, Percentage of Eschar (Black): 70, Percentage of Eschar (Yellow): 10. <Shelbi Ely 05/26/19 12:56> - Routine Back/Spine/Pelvis Exam Back/Spine: Present: full ROM <Shelbi Ely 05/26/19 12:56> - Routine Skin Exam Present: dry, wounds <Shelbi Ely 05/26/19 12:56> - Routine Neurological Exam Present: oriented X3 <Shelbi Ely Leanna - 05/26/19 12:56> - Routine Psychiatric Exam Present: normal affect <Shelbi Ely Leanna 05/26/19 12:56> Progress Note: A&P (1) PAD (peripheral artery disease) Status: Chronic Current Visit: No (2) Osteomyelitis of left foot Status: Acute Current Visit: Yes (3) Hyperlipidemia Status: Acute Current Visit: Yes (4) Elevated blood pressure reading Status: Acute Current Visit: Yes (5) Diabetic neuropathy associated with type 2 diabetes mellitus Status: Acute Current Visit: No (6) History of amputation of lesser toe of left foot Status: Acute Current Visit: No (7) Obesity, Class I, BMI 30-34.9 Status: Chronic Current Visit: No (8) Diabetic foot infection Statu
--- NOTE | 2019-05-26 13:30 | XR_ITS ---
PROCEDURE: XR CALCANEUS LT MIN 2V CLINICAL INDICATION: post op Postop debridement, osteomyelitis COMPARISON: XR FOOT WT BEARING LT 3V from 05/18/2019 FINDINGS: There has been interval osteotomy the mid to posterior aspect of the calcaneus. Multiple skin clips are present and there is a small amount of soft tissue gas. There is good alignment. A drain is present IMPRESSION: Status post osteotomy and posterior aspect of the calcaneus with postsurgical changes and small amount of soft tissue gas which may be postsurgical Dictated by: Emanuel Ferraro MD 05/26/2019 15:35 Electronically signed by Emanuel Ferraro MD in [place] 05/26/2019 15:35
--- NOTE | 2019-05-26 13:36 | HMH.OPNOTE ---
Date of procedure: 05/26/19 Pre-op Diagnosis:: 1. Left heel decubitus ulcer 2. Left diabetic foot infection 3. Left calcaneal osteomyelitis 4. Left foot gangrene 5. B/L LE PAD Post-op Diagnosis:: Same Procedure performed:: 1. Left heel ulcer excision 2. Left partial calcanectomy (with bone biospy) 3. Left Achilles debridement 4. Left application of Integra meshed bilayer wound matrix 5. Left application of wound vac Surgeon:: Serina Lin DPM FIELD PARTY MANAGER:: Abdiel Fowler Anesthesia: GETA, local (0.5% marcaine plain) Estimated blood loss (mL): 15 Clinical Note:: Infected Wound: Left heel decubitus ulcer: I discussed with the patient the importance of proper hygiene and maintaining a clean healthy wound bed to avoid the infection spreading. We discussed conservative versus surgical treatment options. Conservative treatment options include local wound care, oral and IV antibiotics, change in shoe wear, taping/padding, and off-loading. We discussed surgical intervention for partial calcanectomy/amputation of heel, bone biospy, ulcer debridement, wound vac. Patient understands that there is a chance that the foot may change shape after surgery. Patient also understands that they could have wound healing complications including delayed healing and infection. We discussed that if the wound does not heal, it is possible that they may need a more proximal amputation and could result in further loss of digits, loss of partial foot or loss of leg. We discussed the risks and benefits in great detail. Other surgical risks include: prolonged pain and swelling, further infection requiring oral or IV antibiotics, delay in healing of soft tissue or bone, nerve or blood vessel damage, CRPS/RSD, DVT, anesthesia complications, and even . All questions answered. Patient verbalized understanding. Consent obtained. Patient admitted per PCP, Dr. Randle for PICC, IV antibiotics, and pre-op cardiac evaluation and run-off prior to Podiatry surgery. Operative findings:: Left heel had a large ulcer with eschar and surrounding edema with ascending cellulitis. Post debidement: full thickness exccision of ulcer with 15' blade, forceps to the level of bone. No cheryle purulence expressed. No sinus tracking. Minimal bleeding. Post debridement: large heel wound 6.6x6.4x6.0cm with detached posterior insertion of Achilles. Surrounding wound edges 100% granular, wound base was to bone. Achilles debrided at insertion and non viable tissue excised. Operative note:: On this date and time patient was deemed an appropriate surgical candidate. With informed consent signed, the patient was taken to the operating theater room. The patient was positioned supine. General anesthesia was induced. No tourniquet used. Pre-op left foot block given with 20 cc 0.5% marcaine plain. Left wound debridement, excision of heel ulcer: The left extremity was prepped and draped in normal sterile fashion. Attention was directed to the posterior heel where a large wound was noted with eschar. There was a small ring of eschar around the wound. Utilizing a 15 blade and pickup the black eschar over the ulcer was sharply excisionally debrided full-thickness. Underlying soft tissue was nonviable. No sinus tracking noted. See operative findings for post debridement wound measurements. Post debridement, there was minimal bleeding was noted. No purulence or signs of infection noted. Left Achilles tendon debridement: Attention was directed to the posterior heel where the Achilles tendon was noted to have some sloughing and brown tissue at the insertion on the calcaneus. It was sharply excisionally debrided with a 15 blade and forceps. The Achilles at the insertion was detached removing all nonviable tendon. Left partial calcanectomy (with bone biospy): There was exposed calcaneus underneath which was soft and crumbly. It was resected with power sagittal saw. Next, utilizing a ronguer a piece of the calcaneus was removed and s
--- NOTE | 2019-05-26 13:39 | HMH.ANESI ---
[facility] Anesthesia Record Part I Intake, IV Amount: 1,200 Estimated blood loss (mL): 10 Urine output (mL): 0 Blood Pressure: 120/75 SaO2: 98 Pulse Rate: 69 Respiratory Rate: 16 Temperature: 98.4 F Patient is:: Drowsy, Stable Stable to PACU at:: 13:30
[2019-05-26 13:52] LABS: POC Glucose,Bedside 202 (70-110)
--- NOTE | 2019-05-26 14:36 | PC.NURSE ---
1345-checked fsbs with results of 1357-radiology at bedside 1402-pt's at bedside- detailed report called to DanielRN 1408-pt transported to 2nd floor per MIHAELA Beck and MIHAELA Brice with robyn rails up, vss, pt stable upon discharge from pacu.
[2019-05-26 14:58] LABS: Creatinine Clearance Estimated 106 mL/min (50-200); Estimated Glomerular Filt Rate 85 ml/min (>60); GFR (African American) 102 ML/MIN (>60)
[2019-05-26 15:11] LABS: Vancomycin,Trough 12.4 ug/mL (5.0-10.0)
--- NOTE | 2019-05-26 15:14 | HMH.ANESII ---
[facility] Anesthesia Record Part II Discharge Time: 14:08 Destination: Medical Surgical Department PACU nurse assessment reviewed?: Yes Patient Condition:: Good Anesthesia Complications:: None Swallowing reflex intact?: Yes Cyanosis?: No Blood Pressure: 152/88 Pulse Rate: 69 Temperature: 98.0 F Mental Status: Alert & Oriented Pain level:: 0 Nausea and/or vomitting:: None Intake, IV Amount: 0
--- NOTE | 2019-05-26 15:19 | PC.NURSE ---
Patient s/p debridement of L heel, has wound vac in place to L heel, LLE elevated on pillow, denies any pain at this time, on post op vitals, vitals have remained stable at this time, picc line dsg changed this shift using sterile technique, pt tolerated well, no s/s of distress noted, will continue to monitor.
--- NOTE | 2019-05-26 16:19 | HMH.PHACONS ---
- Pharmacy Consult Date: 05/26/19 Time: 16:19 Referring provider: DR. UPTON Reason for Consult:: VANCOMYCIN DOSE CHANGE Allergies and ADEs:: Allergies Allergy/AdvReac Type Severity Reaction Status Date / Time No Known Allergies Allergy Verified 05/25/19 08:44 Home Medications:: Home Medications Medication Instructions Recorded Confirmed Type aspirin 81 mg tablet,delayed 81 mg PO DAILY 05/18/19 05/25/19 History release atorvastatin 40 mg tablet 40 mg PO DAILY 05/18/19 05/25/19 History gabapentin 300 mg capsule 600 mg PO BID 05/18/19 05/25/19 History glimepiride 4 mg tablet 4 mg PO DAILY 05/18/19 05/25/19 History insulin glargine 100 unit/mL 35 units SQ PM 05/18/19 05/25/19 History subcutaneous solution metformin 1,000 mg tablet 1,000 mg PO BID 05/18/19 05/25/19 History Collagenase Clostridium Hist. 1 applic TOPICAL DAILY 05/25/19 05/25/19 History [Santyl] Doxycycline Hyclate [Vibra-Tab 100 mg PO BID 05/25/19 05/25/19 History 100mg tablet] Vit A/Vit C/Vit E/Zinc/Copper 1 tab PO DAILY 05/25/19 05/25/19 History [Preservision Areds Tablet] Height: 1.75 m Weight: 101.831 kg Laboratory Results:: Laboratory Results - last 24 hr 05/25/19 17:51: POC Glucose 132 H 05/25/19 20:26: POC Glucose 216 H 05/26/19 06:09: POC Glucose 142 H 05/26/19 13:45: POC Glucose 202 H 05/26/19 14:26: Vancomycin Trough 12.4 H 05/26/19 14:26: Creatinine 0.90 D, Estimated Creat Clear 106, Estimated GFR 85, Est GFR ( Amer) 102 D Medical History: Reports:: Cancer (skin), Diabetes Mellitus Type 2, Gastroesophageal Reflux Disease(GERD), Hyperlipidemia, Hypertension, Kidney Stones Denies:: Seizures Assessment and Plan (1) PAD (peripheral artery disease) Current visit: No Status: Chronic Category: Medical Code(s): I73.9 - Peripheral vascular disease, unspecified (2) Osteomyelitis of left foot Current visit: Yes Status: Acute Category: Medical Code(s): M86.9 - Osteomyelitis, unspecified (3) Hyperlipidemia Current visit: Yes Status: Acute Category: Medical Code(s): E78.5 - Hyperlipidemia, unspecified (4) Elevated blood pressure reading Current visit: Yes Status: Acute Category: Medical Code(s): R03.0 - Elevated blood-pressure reading, without diagnosis of hypertension (5) Diabetic neuropathy associated with type 2 diabetes mellitus Current visit: No Status: Acute Qualifiers: Diabetes mellitus complication detail: diabetic polyneuropathy Qualified Code(s): E11.42 - Type 2 diabetes mellitus with diabetic polyneuropathy Category: Medical Code(s): E11.40 - Type 2 diabetes mellitus with diabetic neuropathy, unspecified (6) History of amputation of lesser toe of left foot Current visit: No Status: Acute Category: Surgical Code(s): Z89.422 - Acquired absence of other left toe(s) (7) Obesity, Class I, BMI 30-34.9 Current visit: No Status: Chronic Category: Medical Code(s): E66.9 - Obesity, unspecified (8) Diabetic foot infection Current visit: Yes Status: Acute Category: Medical Code(s): E11.628 - Type 2 diabetes mellitus with other skin complications; L08.9 - Local infection of the skin and subcutaneous tissue, unspecified (9) Cellulitis of left foot Current visit: No Status: Acute Category: Medical Code(s): L03.116 - Cellulitis of left lower limb (10) Ulcer of left heel Current visit: Yes Status: Acute Category: Medical Code(s): L97.429 - Non-pressure chronic ulcer of left heel and midfoot with unspecified severity (11) Noncompliance with diabetes treatment Current visit: Yes Status: Acute Category: Medical Code(s): Z91.19 - Patient's noncompliance with other medical treatment and regimen (12) Type 2 diabetes mellitus Current visit: Yes Status: Acute Category: Medical Code(s): E11.9 - Type 2 diabetes mellitus without complications (13) Diastolic dysfunction Current visit: Yes Status: Chronic Cat
[2019-05-26 17:02] LABS: POC Glucose,Bedside 283 (70-110)
--- NOTE | 2019-05-26 19:14 | PC.NURSE ---
report given to vesna
[2019-05-26 21:49] LABS: POC Glucose,Bedside 345 (70-110)
[2019-05-27 04:00] VITALS: BP 154/79; PULSE 64; RESP 16; TEMP 36.7; O2SAT 97
[2019-05-27 04:54] LABS: Chloride 101 mmol/L (98-107); Sodium 134 mmol/L (136-145)
[2019-05-27 04:57] LABS: Blood Urea Nitrogen 16 mg/dl (9-20); Creatinine Clearance Estimated 106 mL/min (50-200); Estimated Glomerular Filt Rate 97 ml/min (>60); GFR (African American) 117 ML/MIN (>60)
[2019-05-27 04:58] LABS: Calcium 8.6 mg/dl (8.4-10.2); Carbon Dioxide 27 mmol/L (22.0-30.0); Glucose 282 mg/dl (74-100)
[2019-05-27 05:18] LABS: Basophils % 0.1 % (0.1-2.0); Eosinophils % 0.1 % (0.1-12.0); Hematocrit 32.8 % (42.0-52.0); Hemoglobin 10.3 g/dL (14.1-18.0); Lymphocytes # 1.7 K/mm3 (0.7-4.5); Lymphocytes % 15.9 % (10-50); Mean Corpuscular HGB Conc 31.4 g/dL (31.8-35.4); Mean Platelet Volume 9.1 fl (7.4-10.4); Monocytes # 0.6 K/mm3 (0.1-1.0); Monocytes % 5.6 % (1.7-9.3); Neutrophils # 8.6 K/mm3 (1.8-7.8); Neutrophils % 78.3 % (37.0-80.0); Platelet Count 364 K/mm3 (142-424); Red Blood Count 3.69 M/mm3 (4.60-6.20); Red Cell Distribution Width 13.4 % (11.5-17.5); White Blood Count 10.9 K/mm3 (4.8-10.8)
[2019-05-27 05:37] LABS: C-Reactive Protein 18.2 mg/L (0-4)
[2019-05-27 05:57] LABS: POC Glucose,Bedside 268 (70-110)
[2019-05-27 06:00] VITALS: BMI 32.9
[2019-05-27 07:02] LABS: Erythrocyte Sedimentation Rate 128 mm/hr (0-20)
--- NOTE | 2019-05-27 07:40 | PC.NURSE ---
A&O X4. PT RESTED WELL WITH EYES CLOSED T/O THIS SHIFT WITH NO COMPLAINTS. NO PAIN NOTED. NO ACUTE CHANGES NOTED. TOLERATED RA WELL WITH NO COMPLAINTS. WOUND VAC REMAINS IN PLACE IN LLE, ADEQUATELY DRAINING. DSG TO E NOTED C/D/I. LEFT FOOT REMAINS ELEVATED WITH 2 PILLOWS AND FLOATING FREE FROM ALL SURFACES OF BED. PICC LINE IN IVORY FLUSHED WELL WITH NS. USE OF URINAL AT BEDSIDE, NO COMPLAINTS. URINE NOTED CLEAR, BRIGHT YELLOW WITH NORMAL ODOR. NO BM NOTED THIS SHIFT. SCUDS ON RLE. VSS. REMAINS SAFE WITH BED ALARM INTACT AND FUNCTIONING. CALL LIGHT WITHIN REACH. WILL CONTINUE TO MONITOR.
[2019-05-27 08:00] VITALS: BP 140/66; PULSE 66; RESP 15; TEMP 36.8; O2SAT 97
--- NOTE | 2019-05-27 08:34 | HMH.ACPN2 ---
<Alta Zaidi - Last Filed: 05/27/19 08:34> Internal Medicine - PN: Subj *Date: 05/27/19 *Time: 08:34 Interval history: Patient tolerated his heel debridement well yesterday. A wound VAC was placed. He states his pain is controlled with pain medication. He slept off and on last night and was able to eat this morning. Exam Vital signs and Labs for Last 24 Hours: Temp Pulse Resp BP Pulse Ox 98.0 F 64 16 154/79 H 97 05/27/19 04:00 05/27/19 04:00 05/27/19 04:00 05/27/19 04:00 05/27/19 04:00 Laboratory Results - last 24 hr 05/26/19 13:45: POC Glucose 202 H 05/26/19 14:26: Vancomycin Trough 12.4 H 05/26/19 14:26: Creatinine 0.90 D, Estimated Creat Clear 106, Estimated GFR 85, Est GFR ( Amer) 102 D 05/26/19 16:29: POC Glucose 283 H 05/26/19 21:22: POC Glucose 345 H* 05/27/19 04:20: WBC 10.9 H, RBC 3.69 L, Hgb 10.3 L, Hct 32.8 L, MCV 89.0, MCH 28.0, MCHC 31.4 L, RDW 13.4, Plt Count 364, MPV 9.1, Neut % (Auto) 78.3, Lymph % (Auto) 15.9, [place] % (Auto) 5.6, Eos % (Auto) 0.1, Baso % (Auto) 0.1, Neut # (Auto) 8.6 H, Lymph # (Auto) 1.7, [place] # (Auto) 0.6, Eos # (Auto) 0.0, Baso # (Auto) 0.0 05/27/19 04:20: Sodium 134 L, Potassium 4.0, Chloride 101, Carbon Dioxide 27, Anion Gap 10.0, BUN 16 D, Creatinine 0.80, Estimated Creat Clear 106, Estimated GFR 97, Est GFR ( Amer) 117, Glucose 282 H, Calcium 8.6, C-Reactive Protein 18.2 H 05/27/19 04:20: ESR 128 H 05/27/19 04:58: POC Glucose 268 H I & O for Last 24 hours: Intake & Output 05/24/19 05/25/19 05/26/19 05/27/19 11:59 11:59 11:59 11:59 Intake Total 480 / 480 2170 / 2170 Output Total 1175 / 1175 Balance 480 / 480 995 / 995 Weight 224 lb 8 oz 224 lb 8 oz 222 lb 5 oz - Constitutional no acute distress - *Routine Respiratory Exam Present: CTA bilaterally - *Routine Cardiovascular Exam Present: RRR - *Routine Abdominal Exam Present: soft, normoactive bowel sounds. Absent: tenderness - *Routine Extremities Exam Comments: Dressing and wound vac in place on left foot - *Routine Skin Exam Present: warm. Absent: rash - *Routine Neurological Exam Present: alert, oriented X3 Assessment and Plan (1) PAD (peripheral artery disease) Current visit: No Status: Chronic Category: Medical Code(s): I73.9 - Peripheral vascular disease, unspecified (2) Osteomyelitis of left foot Current visit: Yes Status: Acute Category: Medical Code(s): M86.9 - Osteomyelitis, unspecified (3) Hyperlipidemia Current visit: Yes Status: Acute Category: Medical Code(s): E78.5 - Hyperlipidemia, unspecified (4) Elevated blood pressure reading Current visit: Yes Status: Acute Category: Medical Code(s): R03.0 - Elevated blood-pressure reading, without diagnosis of hypertension (5) Diabetic neuropathy associated with type 2 diabetes mellitus Current visit: No Status: Acute Qualifiers: Diabetes mellitus complication detail: diabetic polyneuropathy Qualified Code(s): E11.42 - Type 2 diabetes mellitus with diabetic polyneuropathy Category: Medical Code(s): E11.40 - Type 2 diabetes mellitus with diabetic neuropathy, unspecified (6) History of amputation of lesser toe of left foot Current visit: No Status: Acute Category: Surgical Code(s): Z89.422 - Acquired absence of other left toe(s) (7) Obesity, Class I, BMI 30-34.9 Current visit: No Status: Chronic Category: Medical Code(s): E66.9 - Obesity, unspecified (8) Diabetic foot infection Current visit: Yes Status: Acute Category: Medical Code(s): E11.628 - Type 2 diabetes mellitus with other skin complications; L08.9 - Local infection of the skin and subcutaneous tissue, unspecified (9) Cellulitis of left foot Current visit: No Status: Acute Category: Medical Code(s): L03.116 - Cellulitis of left lower limb (10) Ulcer of left heel Current visit: Yes Status: Acute Category: Medical Code(s): L97.429 - Non-pressure chr
--- NOTE | 2019-05-27 10:38 | HMH.PNCARD ---
Subjective Date: 05/27/19 Time: 10:38 Principal diagnosis: PAD, Left heel wound Interval history: This is a 63-year-old gentleman who was admitted to the hospital for left heel wound. He underwent left heel debridement yesterday with Dr. Lin and he tolerated this procedure well. He does have a wound VAC in place to his left foot. Cardiology does recommend aspirin 81 mg daily with Xarelto 2.5 mg twice daily for PAD following his surgery. Today he denies any chest pain or pressure. He denies any shortness of breath. He states that he still has some edema in his left lower extremity but this is better. He denies any fever, chills, nausea, vomiting, diarrhea, PND, orthopnea or cough. He states that his pain is well controlled this morning in his bilateral lower extremities. He has no cardiac complaints today. The patient was started on lisinopril yesterday for better blood pressure control. His blood pressure is much better today. Exam Vital signs and Labs for Last 24 Hours: Temp Pulse Resp BP Pulse Ox 98.2 F 66 15 140/66 97 05/27/19 08:00 05/27/19 08:00 05/27/19 08:00 05/27/19 08:00 05/27/19 08:00 Laboratory Results - last 24 hr 05/26/19 13:45: POC Glucose 202 H 05/26/19 14:26: Vancomycin Trough 12.4 H 05/26/19 14:26: Creatinine 0.90 D, Estimated Creat Clear 106, Estimated GFR 85, Est GFR ( Amer) 102 D 05/26/19 16:29: POC Glucose 283 H 05/26/19 21:22: POC Glucose 345 H* 05/27/19 04:20: WBC 10.9 H, RBC 3.69 L, Hgb 10.3 L, Hct 32.8 L, MCV 89.0, MCH 28.0, MCHC 31.4 L, RDW 13.4, Plt Count 364, MPV 9.1, Neut % (Auto) 78.3, Lymph % (Auto) 15.9, [place] % (Auto) 5.6, Eos % (Auto) 0.1, Baso % (Auto) 0.1, Neut # (Auto) 8.6 H, Lymph # (Auto) 1.7, [place] # (Auto) 0.6, Eos # (Auto) 0.0, Baso # (Auto) 0.0 05/27/19 04:20: Sodium 134 L, Potassium 4.0, Chloride 101, Carbon Dioxide 27, Anion Gap 10.0, BUN 16 D, Creatinine 0.80, Estimated Creat Clear 106, Estimated GFR 97, Est GFR ( Amer) 117, Glucose 282 H, Calcium 8.6, C-Reactive Protein 18.2 H 05/27/19 04:20: ESR 128 H 05/27/19 04:58: POC Glucose 268 H I & O for Last 24 hours: Intake & Output 05/24/19 05/25/19 05/26/19 05/27/19 23:59 23:59 23:59 23:59 Intake Total 240 / 480 2160 / 2160 610 / 610 Output Total 975 / 975 200 / 200 Balance 240 / 480 1185 / 1185 410 / 410 Weight 224 lb 8 oz 224 lb 13.944 oz 222 lb 5 oz - Constitutional no acute distress, obese - *Routine HEENT Exam Head: Present: normocephalic, atraumatic Eye: Present: EOMI, PERRL ENT: Present: mucous membranes moist - *Routine Neck Exam Present: supple, full ROM, normal carotid upstroke. Absent: JVD, carotid bruit, lymphadenopathy - *Routine Respiratory Exam Present: CTA bilaterally - *Routine Cardiovascular Exam Present: RRR, Normal S1, Normal S2. Absent: murmur, gallop - *Routine Abdominal Exam Present: soft, normoactive bowel sounds. Absent: tenderness, distended - *Routine Extremities Exam Present: edema (Edema noted in his left lower extremity), full ROM. Absent: cyanosis, clubbing - *Routine Skin Exam Present: warm. Absent: rash Comments: Patient is status post left heel debridement with a wound VAC in place. - *Routine Neurological Exam Present: alert, oriented X3, CN II-XII intact. Absent: sensory deficit Progress Note: A&P (1) PAD (peripheral artery disease) Status: Chronic Current Visit: No (2) Osteomyelitis of left foot Status: Acute Current Visit: Yes (3) Hyperlipidemia Status: Acute Current Visit: Yes (4) Elevated blood pressure reading Status: Acute Current Visit: Yes (5) Diabetic neuropathy associated with type 2 diabetes mellitus Status: Acute Current Visit: No (6) History of amputation of lesser toe of left foot Status: Acute Current Visit: No (7) Obesity, Class I, BMI 30-34.9 Status: Chronic Current Visit: No (8) Diabetic foot infection Status: Acute Current Visit: Yes (9) Cellulitis
--- NOTE | 2019-05-27 11:03 | HMH.PTEV ---
Physical Therapy Evaluation Rehab PT IP Evaluation Start: 05/26/19 13:33 Freq: ONCE Status: Active Protocol: Document 05/27/19 10:54 PIEROPANTERA (Rec: 05/27/19 11:01 JOHANNA [id number]) Subjective/History History History This is the initial IP PT evaluation for Indra Murray . Pt is a 63 y/o male admitted to [facility] for infected wound requiring surgical debridement and wound vac placement. Pt has pmh of diabetes w/ sig. peripheral neuropathy. Subjective Subjective Pt reports his arms are too weak to support him and his R knee gives out all the time Rehab PT IP Eval Objective Appearance Patient Behavior Appropriate,Cooperative Patient Orientation Person,Place,Time Difficulty following instructions none Speech Pattern Appropriate Ambulation Patient Able to Ambulate Yes Ambulation Observation IP General Gait Pattern Observation Decrease Weight Bear (L) Ambulation Distance (feet) 2 Ambulation Assistive Device Rolling Walker Ambulation Ability Minimal x 1 (25% assist) Balance Ability to Arise Able, uses arms to help Sitting Balance Steady, safe Standing Balance Unsteady Dynamic Sitting Balance Ability Good Dynamic Standing Balance Ability Poor Transfers Bed Transfer Ability Independent Chair Transfer Ability Independent Sit to Stand Bed Transfer Ability Contact Guard/Hand Hold Sit to Stand Chair Transfer Ability Contact Guard/Hand Hold Rehab PT IP prob,goals,plan Problems Date of Evaluation: 05/27/19 PT IP Problems Transfers,Gait,Balance,Self care,Safety,Other Other Pt Problem wound care/vac Rehab Potential Rehab Potential Fair Equipment Needs Assistive Devices Rolling / Wheeled Walker Plan PT Intervention Plan Transfers,Gait,Balance,Self care,Safety,Therapeutic Exercise PT Plan Frequency BID Duration LOS Discharge Goals Bed Transfer Ability Independent Sit to Stand Chair Transfer Ability Contact Guard/Hand Hold Ambulation Assistive Device Rolling Walker Ambulation Distance (feet) 3 Discharge Plan PT Discharge Plan Pt would benefit from SNF placement to allow full coverage of needs including IV
--- NOTE | 2019-05-27 11:29 | SW/DCPLANNER ---
Addendum entered by April Cárdenas 05/27/19 14:40: This patient has been accepted to [facility] in [place]. Original Note: I have received a referral for this patient regarding: DME, home health, wound VAC and IV antibiotics. Patient has stated that he resides at home with his and 8 year old granddaughter. Patient and I had a lengthy discussion regarding IV antibiotics. Patient stated that he would be unable to return to [facility] daily and he was not sure his would be able/comfortable with administering IV antibiotics. PT did evaluate this patient and stated that patient could benefit from SNF level of care. I did discussion this with patient and he is agreeable. Patient stated that he prefer [place] or [place]. I did explain to patient that [place] and [place] were out of network with [facility] and [place] currently has no beds at this time. Patient stated that he would be fine with [place]. I have spoke with Ana at [facility]: stated they do have beds available. Patient information has been faxed to Mone Roth. I will continue to follow up with: patient, Mone Roth, and . Discharge date is unknown at this time.
[2019-05-27 12:16] LABS: POC Glucose,Bedside 271 (70-110)
--- NOTE | 2019-05-27 13:11 | HMH.ORTHPN ---
Subjective Date: 05/27/19 Time: 13:10 Principal diagnosis: PAD, Left heel wound Interval history: Patient is resting comfortably in the reclining chair. Patient states he had physical therapy with fill today. He typically uses 1 crutch at home for balance and weakness to the right side. He states his arms are weak. It was recommended that the patient go to a SNF facility for rehab which we discussed at bedside this morning. Patient is reluctant to use both crutches, walker or knee scooter. PN: Obj Ex Vital signs: Temp Pulse Resp BP Pulse Ox 98.2 F 66 15 140/66 97 05/27/19 08:00 05/27/19 08:00 05/27/19 08:00 05/27/19 08:00 05/27/19 08:00 - Constitutional no acute distress - Routine HEENT Exam Head: Present: normocephalic - Routine Neck Exam Present: supple - Routine Respiratory Exam Present: CTA bilaterally. Absent: respiratory distress - Routine Cardiovascular Exam Present: RRR - Routine Abdominal Exam Present: soft. Absent: guarding - Routine Extremities Exam Present: edema. Absent: calf tenderness - Detailed Lower Extremity Exam Bottom foot image: 1 - Wound graft and dressing clean dry and intact to left foot. Vac @120mmHg over the graft. Edema and erythema still noted, but improved. No pain to palpation. No calf or thigh pain noted. Light touch sensation and motor function at baseline. - Routine Back/Spine/Pelvis Exam Back/Spine: Present: pain with rotation Progress Note: A&P (1) PAD (peripheral artery disease) Status: Chronic Current Visit: No (2) Osteomyelitis of left foot Status: Acute Current Visit: Yes (3) Hyperlipidemia Status: Acute Current Visit: Yes (4) Elevated blood pressure reading Status: Acute Current Visit: Yes (5) Diabetic neuropathy associated with type 2 diabetes mellitus Status: Acute Current Visit: No (6) History of amputation of lesser toe of left foot Status: Acute Current Visit: No (7) Obesity, Class I, BMI 30-34.9 Status: Chronic Current Visit: No (8) Diabetic foot infection Status: Acute Current Visit: Yes (9) Cellulitis of left foot Status: Acute Current Visit: No (10) Ulcer of left heel Status: Acute Current Visit: Yes (11) Noncompliance with diabetes treatment Status: Acute Current Visit: Yes (12) Type 2 diabetes mellitus Status: Acute Current Visit: Yes (13) Diastolic dysfunction Status: Chronic Current Visit: Yes Assessment and Plan for All Diagnoses:: 05/26/19, S/P: 1. Left heel ulcer excision, 2. Left partial calcanectomy (with bone biospy), 3. Left Achilles debridement, 4. Left application of Integra meshed bilayer wound matrix, 5. Left application of wound vac POD #1 Outer dressing changes. Wound vac kept intact. Discussed with the patient strict nonweightbearing protocol. Patient seems to understand but is reluctant to accept he cannot walk on the left lower extremity. I also explained to the patient that due to the aggressive calcanectomy and Achilles debridement he will not have the strength to support the body weight on the left. I also explained that he can share the wound VAC and the graft off exposing the calcaneus. I explained the patient will be braced for life because of the attachment of the Achilles tendon. He will need custom bracing once the wound has healed. After discussing with the patient and Kael, I do agree with the recommendation that the patient should go to a rehab SNF facility as he will need PICC line with IV antibiotics and wound VAC dressing changes. Patient is to maintain dressing clean dry and intact. Home health care/SNF to check wound vac dressing and seal. Do not remove wound vac, adaptic or graft this week. -Will need white foam sponge for wound vac dressing changes. -Podiatry will do first wound vac dressing change in office on Friday05/31/19. -Patient is
[2019-05-27 16:00] VITALS: BP 155/87; PULSE 67; RESP 18; TEMP 36.7; O2SAT 98
[2019-05-27 17:30] LABS: POC Glucose,Bedside 206 (70-110)
--- NOTE | 2019-05-27 17:37 | PC.NURSE ---
pt has rested well this shift. he was up to the chair for a few hours this afternoon and was returned to the bed with mod-max assist from phys therapy. pt has requested his crutches to use. pt was informed of the safety concern for him using the crutches while non weight bearing, as well as the fact that he has a picc line in place that crosses his axilla and could be damaged by the crutches. lung sounds remain clear, bowel sounds are active. wound vacc has blood noted in the collection canister. dressing is intact and will be reinforced as needed. nad noted. will continue to monitor.
[2019-05-27 20:00] VITALS: BP 161/75; PULSE 62; RESP 18; TEMP 36.7; O2SAT 98
[2019-05-27 22:19] LABS: POC Glucose,Bedside 218 (70-110)
[2019-05-28 04:00] VITALS: BP 157/73; PULSE 58; RESP 18; TEMP 36.8; O2SAT 97
[2019-05-28 05:41] VITALS: BMI 33.3
--- NOTE | 2019-05-28 06:06 | PC.NURSE ---
A&O X4. PT RESTED WELL WITH EYES CLOSED T/O SHIFT WITH NO COMPLAINTS OF PAIN. TOLERATED RA WELL, NO SOA NOTED. WOUND VAC DRAINAGE ADEQUATELY FROM LEFT FOOT. ELEVATED LLE ON TWO PILLOWS WITH HEEL FLOATING PER MD ORDERS. ADEQUATE URINE OUTPUT NOTED T/O SHIFT. URINE CLEAR, BRIGHT YELLOW IN COLOR WITH NORMAL ODOR. NO BOWEL MOVEMENT THUS FAR, ADMINISTERED PRUNE JUICE FOR AID IN BM THIS AM. ATTEMPTED TO SIT ON BEDPAN PER REQUEST. PT STATES, IT IS VERY DIFFICULT FOR ME TO WALK RIGHT NOW . VSS. REMAINS SAFE. CALL LIGHT WITHIN REACH. WILL CONTINUE TO MONITOR.
[2019-05-28 06:38] LABS: POC Glucose,Bedside 226 (70-110)
--- NOTE | 2019-05-28 07:27 | SW/DCPLANNER ---
Addendum entered by April Cárdenas 05/28/19 10:56: Patient has decided to transport via ambulance with the understanding that he could potentially be charged. I have spoke with patients and she is going to go to [facility] this morning and complete all paperwork for this patient. Dr Randle is going to discharge this patient today. Original Note: This patient has been accepted to [facility] and [facility] has approved for patient to go today. I will relay message to MD and patient. Patient stated yesterday that his will be able to transport him at time of discharge.
[2019-05-28 08:00] VITALS: O2SAT 96
--- NOTE | 2019-05-28 08:30 | HMH.ACPN2 ---
<Alta Zaidi - Last Filed: 05/28/19 08:30> Internal Medicine - PN: Subj *Date: 05/28/19 *Time: 08:30 Interval history: Patient states he is feeling better this morning. He slept decently throughout the night. He has minimal pain in his foot. He is complaining of some constipation and has not had a bowel movement since Friday. He is eating normally. Exam Vital signs and Labs for Last 24 Hours: Temp Pulse Resp BP Pulse Ox 98.2 F 58 L 18 157/73 H 97 05/28/19 04:00 05/28/19 04:00 05/28/19 04:00 05/28/19 04:00 05/28/19 04:00 Laboratory Results - last 24 hr 05/27/19 11:37: POC Glucose 271 H 05/27/19 17:13: POC Glucose 206 H 05/27/19 21:55: POC Glucose 218 H 05/28/19 05:43: POC Glucose 226 H I & O for Last 24 hours: Intake & Output 05/25/19 05/26/19 05/27/19 05/28/19 11:59 11:59 11:59 11:59 Intake Total 480 / 480 2530 / 2530 1560 / 1560 Output Total 1450 / 1450 3050 / 3050 Balance 480 / 480 1080 / 1080 -1490 / -1490 Weight 224 lb 8 oz 224 lb 8 oz 222 lb 5 oz 225 lb 2 oz Microbiology Reports for the Last 24 Hours: Microbiology 05/26/19 12:35 Foot,Left - Wound Gram Stain - Final 05/26/19 12:35 Foot,Left - Wound Surgical Biopsy Culture - Preliminary Gram Positive Cocci 05/26/19 12:42 Foot,Left - Wound Gram Stain - Final 05/26/19 12:42 Foot,Left - Wound Surgical Biopsy Culture - Preliminary Gram Positive Cocci - Constitutional no acute distress - *Routine Respiratory Exam Present: CTA bilaterally - *Routine Cardiovascular Exam Present: RRR - *Routine Abdominal Exam Present: soft, normoactive bowel sounds. Absent: tenderness - *Routine Extremities Exam Present: edema (minimal edema in the LLE, wound vac in place on the left foot). Absent: cyanosis, clubbing - *Routine Neurological Exam Present: alert, oriented X3 Assessment and Plan (1) PAD (peripheral artery disease) Status: Chronic Category: Medical Code(s): I73.9 - Peripheral vascular disease, unspecified (2) Osteomyelitis of left foot Status: Acute Category: Medical Code(s): M86.9 - Osteomyelitis, unspecified (3) Hyperlipidemia Status: Acute Category: Medical Code(s): E78.5 - Hyperlipidemia, unspecified (4) Elevated blood pressure reading Status: Acute Category: Medical Code(s): R03.0 - Elevated blood-pressure reading, without diagnosis of hypertension (5) Diabetic neuropathy associated with type 2 diabetes mellitus Status: Acute Qualifiers: Diabetes mellitus complication detail: diabetic polyneuropathy Qualified Code(s): E11.42 - Type 2 diabetes mellitus with diabetic polyneuropathy Category: Medical Code(s): E11.40 - Type 2 diabetes mellitus with diabetic neuropathy, unspecified (6) History of amputation of lesser toe of left foot Status: Acute Category: Surgical Code(s): Z89.422 - Acquired absence of other left toe(s) (7) Obesity, Class I, BMI 30-34.9 Status: Chronic Category: Medical Code(s): E66.9 - Obesity, unspecified (8) Diabetic foot infection Status: Acute Category: Medical Code(s): E11.628 - Type 2 diabetes mellitus with other skin complications; L08.9 - Local infection of the skin and subcutaneous tissue, unspecified (9) Cellulitis of left foot Status: Acute Category: Medical Code(s): L03.116 - Cellulitis of left lower limb (10) Ulcer of left heel Status: Acute Category: Medical Code(s): L97.429 - Non-pressure chronic ulcer of left heel and midfoot with unspecified severity (11) Noncompliance with diabetes treatment Status: Acute Category: Medical Code(s): Z91.19 - Patient's noncompliance with other medical treatment and regimen (12) Type 2 diabetes mellitus Status: Acute Category: Medical Code(s): E11.9 - Type 2 diabetes mellitus without complications (13) Diastolic dysfunction Status: Chronic Category: Medical Code(s): I51.
--- NOTE | 2019-05-28 09:26 | HMH.ACPN ---
Internal Medicine - PN: Subj *Date: 05/28/19 *Time: 09:26 Exam Vital signs and Labs for Last 24 Hours: Temp Pulse Resp BP Pulse Ox 98.2 F 58 L 18 157/73 H 97 05/28/19 04:00 05/28/19 04:00 05/28/19 04:00 05/28/19 04:00 05/28/19 04:00 Laboratory Results - last 24 hr 05/27/19 11:37: POC Glucose 271 H 05/27/19 17:13: POC Glucose 206 H 05/27/19 21:55: POC Glucose 218 H 05/28/19 05:43: POC Glucose 226 H I & O for Last 24 hours: Intake & Output 05/25/19 05/26/19 05/27/19 05/28/19 23:59 23:59 23:59 23:59 Intake Total 240 / 480 2160 / 2160 1440 / 1440 730 / 730 Output Total 975 / 975 1825 / 2425 1700 / 1700 Balance 240 / 480 1185 / 1185 -385 / -985 -970 / -970 Weight 101.831 kg 102 kg 100.839 kg 102.115 kg Microbiology Reports for the Last 24 Hours: Microbiology 05/26/19 12:35 Foot,Left - Wound Gram Stain - Final 05/26/19 12:35 Foot,Left - Wound Surgical Biopsy Culture - Preliminary Gram Positive Cocci 05/26/19 12:42 Foot,Left - Wound Gram Stain - Final 05/26/19 12:42 Foot,Left - Wound Surgical Biopsy Culture - Preliminary Gram Positive Cocci Assessment and Plan (1) PAD (peripheral artery disease) Current visit: No Status: Chronic Category: Medical Code(s): I73.9 - Peripheral vascular disease, unspecified (2) Osteomyelitis of left foot Current visit: Yes Status: Acute Category: Medical Code(s): M86.9 - Osteomyelitis, unspecified (3) Hyperlipidemia Current visit: Yes Status: Acute Category: Medical Code(s): E78.5 - Hyperlipidemia, unspecified (4) Elevated blood pressure reading Current visit: Yes Status: Acute Category: Medical Code(s): R03.0 - Elevated blood-pressure reading, without diagnosis of hypertension (5) Diabetic neuropathy associated with type 2 diabetes mellitus Current visit: No Status: Acute Qualifiers: Diabetes mellitus complication detail: diabetic polyneuropathy Qualified Code(s): E11.42 - Type 2 diabetes mellitus with diabetic polyneuropathy Category: Medical Code(s): E11.40 - Type 2 diabetes mellitus with diabetic neuropathy, unspecified (6) History of amputation of lesser toe of left foot Current visit: No Status: Acute Category: Surgical Code(s): Z89.422 - Acquired absence of other left toe(s) (7) Obesity, Class I, BMI 30-34.9 Current visit: No Status: Chronic Category: Medical Code(s): E66.9 - Obesity, unspecified (8) Diabetic foot infection Current visit: Yes Status: Acute Category: Medical Code(s): E11.628 - Type 2 diabetes mellitus with other skin complications; L08.9 - Local infection of the skin and subcutaneous tissue, unspecified (9) Cellulitis of left foot Current visit: No Status: Acute Category: Medical Code(s): L03.116 - Cellulitis of left lower limb (10) Ulcer of left heel Current visit: Yes Status: Acute Category: Medical Code(s): L97.429 - Non-pressure chronic ulcer of left heel and midfoot with unspecified severity (11) Noncompliance with diabetes treatment Current visit: Yes Status: Acute Category: Medical Code(s): Z91.19 - Patient's noncompliance with other medical treatment and regimen (12) Type 2 diabetes mellitus Current visit: Yes Status: Acute Category: Medical Code(s): E11.9 - Type 2 diabetes mellitus without complications (13) Diastolic dysfunction Current visit: Yes Status: Chronic Category: Medical Code(s): I51.89 - Other ill-defined heart diseases The patient's infection will respond to the chosen ABx?: Yes Is the patient receiving the right drug, dose, and route?: Yes Could a more targeted ABx be ordered?: No ( CONTINUING WITH VANCOMYCIN)
--- NOTE | 2019-05-28 10:52 | HMH.DCSUM ---
General - General Admission date:: 05/25/19 <Vazquez Randle - 06/10/19 16:52> 05/25/19 <Alta Zaidi - 05/28/19 11:06> Discharge date: 05/28/19 <Alta Zaidi - 05/28/19 11:06> HPI HPI: Mr. Murray presented to my office for a follow up appointment for a wound on his left heel. He reports no changes to the heel. His has been doing daily dressing changes with santyl and DSD. He continues to take the doxycycline 100mg BID and reports no problems with the antibiotic. He recently had an MURTAZA and MRI and is here to review the tests. Upon office visit exam, worsening edema and erythema noted to the heel. Aminta Ely APRN discussed plan of care with PCP team, Dr. Randle who agreed to admit the patient for cardiac workup and evaluation of abnormal ABIs. Podiatry plans for left heel wound debridement, bone biospy and possible wound vac application tomorrow if cardiolgoy clears. The above as per Dr. Lin <Alta Zaidi - 05/28/19 11:06> Hospital Course Hospital Course: The patient was admitted and was seen by cardiology who planned a left lower extremity runoff with potential intervention to maximize blood flow in anticipation of podiatry surgery of the left heel. He was started on carvedilol and a PICC line was inserted for IV antibiotics. An echocardiogram was ordered. It showed an EF of 55% with grade 1 diastolic dysfunction and a right ventricular systolic pressure of 43 mmHg. The left lower extremity runoff showed bilateral infrageniculate small vessel disease which was too small for either surgical or percutaneous revascularization. Cardiology recommended aspirin 81 mg daily combined with Xarelto 2.5 mg twice daily. They felt he was an acceptable risk for surgery. The MRI that the patient had on his left foot on 05/24/2019 did show underlying osteomyelitis. Dr. Lin performed a left heel ulcer excision, a left partial calcanectomy with bone biopsy, left Achilles debridement, and she placed a meshed bilayer wound matrix and a wound VAC over the wound. She wanted the patient to remain nonweightbearing on the left heel and continue on IV antibiotics via his PICC line. The patient tolerated the procedure well and his pain was controlled with pain medication. He was able to eat. His wound cultures did return showing gram-positive cocci, but the final culture is still pending. Cardiology started the patient on aspirin and Xarelto once the procedure was completed. He did have physical therapy and stated at home he typically used one crutch for balance due to right leg weakness. It was the recommendation of Dr. Lin that the patient go to a intermediate facility for rehab as patient was reluctant to use both crutches, a walker, or a knee scooter. The patient was in agreement and a bed was found for him at [facility]. As per Dr. Lin, he is to have a wound check daily at the intermediate facility. The wound VAC dressing and seal should be checked but should not be removed. Podiatry will do the first wound VAC dressing change in their office on 05/31/2019 and then the intermediate facility will start wound VAC dressing changes Friday and Friday (06/01, 06/03) with white foam sponge over Adaptic. The settings on the wound VAC need to be 120 mmHg continuous medium. His foot will need to be elevated on 2 pillows and his heel will need to be suspended off of the bed. He will need to continue IV vancomycin via PICC line for 6 to 8 weeks pending his bone cultures. He needs to be strictly nonweightbearing to the left lower extremity with DME assistance. He was stable to be discharged to [facility]. <Alta Zaidi - 05/28/19 11:06> Objective Vital signs: Temp Pulse Resp BP Pulse Ox 98.2 F 58 L 18 157/73 H 96 05/28/19 04:00 05/28/19 04:00 05/28/19 04:00 05/28/19 04:00 05/28/19 08:00 <Vazquez Randle - 06/10/19 16:52> Temp Pulse Resp BP Pulse Ox 98.2
[2019-05-28 12:30] LABS: Vancomycin,Trough 19.6 ug/mL (5.0-10.0)
== END 2019-05-28 11:55 | DRG 264 ==
LOC: 2ND 10:42
PROVIDERS: Internal Medicine; Nurse Practitioner Family; Admitting Provider Family Medicine; PCP Family Medicine; Referring Provider Podiatrist; Visit Provider Family Medicine
PROC: B41D1ZZ Fluoroscopy of Aorta and Bilateral Lower Extremity Arteries using Low Osmolar Contrast (ICD-10-PCS; CPT 75630; principal; 2019-05-25 13:30)
PROC: 0HRNXK3 Replacement of Left Foot Skin with Nonautologous Tissue Substitute, Full Thickness, External Approach (ICD-10-PCS; CPT 28120; principal; 2019-05-26 11:15)
DX: E11.51 Type 2 diabetes mellitus with diabetic peripheral angiopathy without gangrene (principal); M86.172 Other acute osteomyelitis, left ankle and foot; I70.92 Chronic total occlusion of artery of the extremities; L03.116 Cellulitis of left lower limb; L97.426 Non-pressure chronic ulcer of left heel and midfoot with bone involvement without evidence of necrosis; I77.1 Stricture of artery; E11.65 Type 2 diabetes mellitus with hyperglycemia; I70.293 Other atherosclerosis of native arteries of extremities, bilateral legs; Z79.4 Long term (current) use of insulin; E11.69 Type 2 diabetes mellitus with other specified complication; I87.8 Other specified disorders of veins; E11.621 Type 2 diabetes mellitus with foot ulcer; Z91.19 Patient's noncompliance with other medical treatment and regimen; Z79.899 Other long term (current) drug therapy; Z89.422 Acquired absence of other left toe(s)
CPT/HCPCS: 75630; 28120; 11043; 15275; 36569; 71045; 73650; 73720; 80048; 80053; 80202; 82565; 82962; 85025; 85651; 86140; 87070; 87077; 87186; 87205; 88305; 88311; 93005; 93306; 97162; 97530; 99152; 99153; A9576; C1725; C1751; C1769; C1894; C9363; J1644; J2405; J2543; J3370; Q9966

== ENCOUNTER → 2019-06-01 10:39 | Outpatient (CLI) | payer MEDICARE, SELFPAY ==
[2019-06-01 11:03] LABS: Vancomycin,Trough 16.3 ug/mL (5.0-10.0)
== END ==
PROVIDERS: Visit Provider Nurse Practitioner Family
DX: Z51.81 Encounter for therapeutic drug level monitoring (principal)
CPT/HCPCS: 80202

== ENCOUNTER 2019-06-07 17:10 | Emergency (ER) | payer MEDICARE, SELFPAY ==
[2019-06-07 17:11] VITALS: BP 176/97; PULSE 69; RESP 18; TEMP 36.6; O2SAT 94; BMI 33.0
--- NOTE | 2019-06-07 17:15 | HMH.EDGENADL ---
ED Disposition Clinical Impression: Pedal edema, Elevated brain natriuretic peptide (BNP) level Disposition: Xfer Inpatient Rehab Fac Condition on Discharge: Good Instructions: DI for Peripheral Edema -- Bilateral Additional Instructions: Take Lasix 20 mg once in the morning and once at night for 3 days. Follow-up with primary care provider after this for reevaluation. Referrals: Provider,Referral, [Primary Care Provider] - 3 days - Critical Care Critical Care Time: No Attestation: On , the high probability of a clinically significant, sudden or life threatening deterioration of the following system(s) required my full and direct attention, intervention and personal management. The time I documented below is in addition to time spent performing reported procedures but includes the following listed in this critical care notation. Medical Decision Making - Medical Records Medical records reviewed: Yes: I reviewed the patient's medical records. - Phil Inquiry Pt receiving controlled substance: No Vital Signs: 06/07/19 17:11 Temperature 97.9 F Temperature Source Oral Pulse Rate [Radial] 69 Respiratory Rate 18 Blood Pressure [Right Arm] 176/97 H Blood Pressure Mean [Right Arm] 123 Blood Pressure Source [Right Arm] Automatic Cuff Blood Pressure Position [Right Arm] Supine 02 Sat by Pulse Oximetry 94 L Oxygen Delivery Method Room Air - Lab Data Lab Results 06/07/19 17:30: WBC 6.2, RBC 3.69 L, Hgb 10.5 L, Hct 32.4 L, MCV 87.7, MCH 28.3, MCHC 32.3, RDW 14.1, Plt Count 159, MPV 8.7, Neut % (Auto) 58.1, Lymph % (Auto) 22.1, [place] % (Auto) 10.1 H, Eos % (Auto) 8.5, Baso % (Auto) 1.1, Neut # (Auto) 3.6, Lymph # (Auto) 1.4, [place] # (Auto) 0.6, Eos # (Auto) 0.5 H, Baso # (Auto) 0.1 06/07/19 17:30: Sodium 136, Potassium 3.8, Chloride 102, Carbon Dioxide 29, Anion Gap 8.8, BUN 13, Creatinine 0.60 L, Estimated Creat Clear 106, Estimated GFR 135, Est GFR ( Amer) 164, Glucose 112 H, Calcium 8.5, Total Bilirubin 0.3, AST 23, ALT 17, Alkaline Phosphatase 114, NT-Pro-B Natriuret Pep 1040 H, Total Protein 6.4, Albumin 3.3 L, Globulin 3.1, Albumin/Globulin Ratio 1.1 Result diagrams: 06/07/19 17:30 06/07/19 17:30 Orders (Tests/Meds): ED MEDICATIONS Discontinued Medications Generic Name Dose Route Start Last Admin Trade Name Annita PRN Reason Stop Dose Admin Furosemide 40 mg 06/07/19 17:15 06/07/19 17:32 Lasix 40mg/4ml Vial IV 06/07/19 17:16 40 mg ONCE ONE Administration Medical Decision Narrative: Patient complains of bilateral lower extremity pain and a swelling sensation. Labs are reassuring with no signs of renal impairment. No significant leukocytosis that would suggest infectious process. Venous Doppler negative for DVT. He has no respiratory distress, clear lung exam and no signs of acute respiratory failure from fluid overload. Patient does have an elevated BNP. He is responding very well to 40 mg of Lasix IV. Advise doubling Lasix (taking 20 mg twice daily instead of once daily) and following up with primary care provider after this. General Adult HPI - General Chief complaint: Recheck/Abnormal Lab/Rx Stated complaint: fluid buildup Time Seen by Provider: 06/07/19 17:15 Mode of Arrival: Wheelchair Source of Information: Patient, Medical Record Limitations: No Limitations - History of Present Illness HPI narrative: This 63-year-old male with a past medical history significant for hypertension, hyperlipidemia, diabetes, CHF, osteomyelitis currently on vancomycin through PICC line who presents to the emergency department for bilateral lower extremity swelling and pain that seems to go all the way up even to his abdomen and his arms over the last 3 days. He takes Lasix 20 mg daily and has been urinating without difficulty. No dysuria. No fevers. He had a venous Doppler study that showed no DVT. He was already seen in podiatry clinic today just prior to arrival for postop ev
[2019-06-07 17:42] LABS: Basophils # 0.1 K/mm3 (0-0.2); Basophils % 1.1 % (0.1-2.0); Eosinophils # 0.5 K/mm3 (0.0-0.4); Eosinophils % 8.5 % (0.1-12.0); Hematocrit 32.4 % (42.0-52.0); Hemoglobin 10.5 g/dL (14.1-18.0); Lymphocytes # 1.4 K/mm3 (0.7-4.5); Lymphocytes % 22.1 % (10-50); Mean Corpuscular HGB Conc 32.3 g/dL (31.8-35.4); Mean Corpuscular Hemoglobin 28.3 pg (27.0-31.2); Mean Corpuscular Volume 87.7 fl (80-94); Mean Platelet Volume 8.7 fl (7.4-10.4); Monocytes # 0.6 K/mm3 (0.1-1.0); Monocytes % 10.1 % (1.7-9.3); Neutrophils # 3.6 K/mm3 (1.8-7.8); Neutrophils % 58.1 % (37.0-80.0); Platelet Count 159 K/mm3 (142-424); Red Blood Count 3.69 M/mm3 (4.60-6.20); Red Cell Distribution Width 14.1 % (11.5-17.5); White Blood Count 6.2 K/mm3 (4.8-10.8)
[2019-06-07 17:48] LABS: Chloride 102 mmol/L (98-107); Sodium 136 mmol/L (136-145)
[2019-06-07 17:49] LABS: Potassium 3.8 mmoL/L (3.5-5.1)
[2019-06-07 17:51] LABS: Alanine Aminotransferase 17 U/L (12-78); Alkaline Phosphatase 114 U/L (38-126); Anion Gap 8.8 mEq/L (5-15); Aspartate Amino Transferase 23 U/L (17-59); Bilirubin,Total 0.3 mg/dl (0.2-1.3); Blood Urea Nitrogen 13 mg/dl (9-20); Carbon Dioxide 29 mmol/L (22.0-30.0); Creatinine Clearance Estimated 106 mL/min (50-200); Estimated Glomerular Filt Rate 135 ml/min (>60); GFR (African American) 164 ML/MIN (>60)
[2019-06-07 17:52] LABS: Albumin Level 3.3 g/dl (3.5-5.0); Albumin/Globulin Ratio 1.1 (1.1-1.8); Calcium 8.5 mg/dl (8.4-10.2); Globulin 3.1 g/dL (1.3-3.2); Glucose 112 mg/dl (74-100); Total Protein,Serum 6.4 g/dl (6.3-8.2)
[2019-06-07 18:00] LABS: NT Pro Brain Natriuretic Pep. 1040 pg/mL (0-125)
[2019-06-07 18:15] VITALS: BP 176/97; PULSE 69; RESP 18; TEMP 36.6; O2SAT 94
== END 2019-06-07 18:28 ==
PROVIDERS: Emergency Provider Emergency Medicine
DX: R60.0 Localized edema (principal); I73.9 Peripheral vascular disease, unspecified; E11.9 Type 2 diabetes mellitus without complications; K21.9 Gastro-esophageal reflux disease without esophagitis; E78.5 Hyperlipidemia, unspecified; I10 Essential (primary) hypertension; R79.89 Other specified abnormal findings of blood chemistry; Z79.899 Other long term (current) drug therapy; R06.02 Shortness of breath
CPT/HCPCS: 80053; 83880; 85025; 96374; 99282

== ENCOUNTER → 2019-06-08 10:21 | Outpatient (CLI) | payer MEDICARE, SELFPAY ==
[2019-06-08 11:49] LABS: Vancomycin,Trough 17.1 ug/mL (5.0-10.0)
== END ==
PROVIDERS: Visit Provider Nurse Practitioner Family
DX: Z51.81 Encounter for therapeutic drug level monitoring (principal)
CPT/HCPCS: 80202

== ENCOUNTER → 2020-05-09 10:06 | Outpatient (CLI) | payer MEDICARE, SELFPAY ==
--- NOTE | 2020-05-09 10:15 | XR_ITS ---
PROCEDURE: XR KNEE RT 3V CLINICAL INDICATION: RT KNEE PAIN COMPARISON: CR [id number] KNEE-3 VIEWS-RT from 05/20/2016 CR [id number] KNEE-3 VIEWS-LT from 05/20/2016 FINDINGS: Tricompartmental degenerative changes of the knee joint are noted with loss of joint space, predominantly in the medial and patellofemoral compartment. Early osteophyte formation is noted. There is no acute fractures or dislocations. Mild generalized osteopenia is noted. Small suprapatellar joint effusion. Incidental note is made of a fabella. Vascular calcification is noted. IMPRESSION: Tricompartmental degenerative changes of the knee joint, worse in the medial and patellofemoral compartments. Small suprapatellar joint effusion. Dictated by: Iris Llanes 05/09/2020 11:19 Iris Llanes in [place] 05/09/2020 11:19
== END ==
PROVIDERS: PCP Physician Assistant; Visit Provider Physician Assistant
DX: M25.561 Pain in right knee (principal)
CPT/HCPCS: 73562

== ENCOUNTER → 2020-06-13 11:00 | Outpatient (CLI) | payer MEDICARE, SELFPAY ==
--- NOTE | 2020-06-13 11:03 | MR_ITS ---
PROCEDURE: MR KNEE RT WO CON CLINICAL INDICATION: RIGHT KNEE PAIN Right knee pain and swelling COMPARISON: CR XR KNEE RT 3V from 05/09/2020 TECHNIQUE: Routine multiplanar multi echo sequences are performed without gadolinium enhancement. FINDINGS: The cruciate ligaments, collateral ligaments, patellar tendon, and quadriceps tendon have an unremarkable appearance. There is severe thinning of the patellar cartilage along its lateral facet. The lateral meniscus has an unremarkable appearance. A complex tear involves the posterior horn of the medial meniscus with a small horizontal component along the anterior aspect of the posterior horn exiting at the tibial surface with a tiny longitudinal component also at this area. More medial the meniscus shows increased T2 signal in a small triangular shape.. There is a small knee joint effusion. There are severe osteoarthritic changes of the patellofemoral joint with mild osteoarthritic changes of the medial compartment. There is mild amount of edema about the knee of the subcutaneous tissues. IMPRESSION: 1. Complex nondisplaced tear involves the posterior horn of the medial meniscus as described above. There is some edema of the mid meniscus medial to the tear. 2. Severe osteoarthritic change of the patellofemoral joint with severe loss of the patellar cartilage laterally with a small knee joint effusion. Dictated by: Emanuel Ferraro MD 06/14/2020 11:34 Emanuel Ferraro MD in [facility] 06/14/2020 11:34
== END ==
PROVIDERS: PCP Physician Assistant; Visit Provider Orthopaedic Surgery
DX: M25.561 Pain in right knee (principal)
CPT/HCPCS: 73721

== ENCOUNTER → 2020-07-20 16:52 | Outpatient (CLI) | payer MEDICARE, SELFPAY ==
[2020-07-20 17:13] LABS: Chol/HDL Ratio 5.3 (1-3.5); Cholesterol 111 mg/dl (140-200); HDL Cholesterol 21 mg/dl (40-60); Triglycerides 134 mg/dl (30-150); VLDL Cholesterol 27 mg/dL (0-40)
[2020-07-20 17:24] LABS: Direct LDL Cholesterol 60.32 mg/dL (100-129)
== END ==
PROVIDERS: Visit Provider Physician Assistant
DX: E78.5 Hyperlipidemia, unspecified (principal)
CPT/HCPCS: 80061

== ENCOUNTER 2020-09-15 13:01 | Inpatient (IN) | payer MEDICARE, SELFPAY ==
[2020-09-15] VITALS (11 sets, daily range): BP systolic 96–138; BP diastolic 56–75; PULSE 54–70; RESP 18–24; TEMP 36.7–38.3; O2SAT 88–98; BMI 36.9; BMI 36.8; BMI 36.1
--- NOTE | 2020-09-15 13:04 | HMH.EDNEU ---
ED Disposition Clinical Impression: PVD (peripheral vascular disease), Pedal edema, Hyperglycemia due to diabetes mellitus, Abnormal liver function test Sepsis Qualifiers: Sepsis acute organ dysfunction status: with acute organ dysfunction Severe sepsis acute organ dysfunction type: acute renal failure Severe sepsis shock status: without septic shock Altered mental status Qualifiers: Altered mental status type: disorientation Qualified Code(s): R41.0 - Disorientation, unspecified Pneumonia Qualifiers: Pneumonia type: due to unspecified organism Laterality: right Lung location: lower lobe of lung Qualified Code(s): J18.9 - Pneumonia, unspecified organism Disposition: Admitted as Observation Condition on Discharge: Serious - Critical Care Critical Care Time: No Attestation: On , the high probability of a clinically significant, sudden or life threatening deterioration of the following system(s) required my full and direct attention, intervention and personal management. The time I documented below is in addition to time spent performing reported procedures but includes the following listed in this critical care notation. Medical Decision Making - Medical Records Medical records reviewed: Yes: I reviewed the patient's medical records. - Phil Inquiry Pt receiving controlled substance: No Vital Signs: 09/15/20 13:02 09/15/20 13:05 09/15/20 13:31 Temperature 100.9 F H Temperature Source Oral Pulse Rate 60 58 L Pulse Rate [Left Radial] 61 Respiratory Rate 18 22 22 Blood Pressure 138/62 118/57 L Blood Pressure [Right Arm] 96/57 L Blood Pressure Mean 77 Blood Pressure Mean [Right Arm] 70 Blood Pressure Source [Right Arm] Automatic Cuff Blood Pressure Position [Right Arm] Sitting 02 Sat by Pulse Oximetry 88 L 97 98 Oxygen Delivery Method Room Air 09/15/20 14:01 09/15/20 14:31 09/15/20 15:01 Temperature Temperature Source Pulse Rate 54 L 56 L 56 L Pulse Rate [Left Radial] Respiratory Rate 23 22 21 Blood Pressure 117/56 L 131/66 124/68 Blood Pressure [Right Arm] Blood Pressure Mean 70 78 86 Blood Pressure Mean [Right Arm] Blood Pressure Source [Right Arm] Blood Pressure Position [Right Arm] 02 Sat by Pulse Oximetry 97 97 97 Oxygen Delivery Method - Lab Data Lab results reviewed: Yes: I reviewed the patient's lab results. Lab Results 09/15/20 13:03: WBC 23.7 H*, RBC 3.50 L, Hgb 10.3 L, Hct 31.2 L, MCV 89.2, MCH 29.5, MCHC 33.1, RDW 14.6, Plt Count 319, MPV 9.0, Neut % (Auto) 90.4 H, Lymph % (Auto) 6.1 L, [place] % (Auto) 3.3, Eos % (Auto) 0.0 L, Baso % (Auto) 0.2, Neut # (Auto) 21.4 H, Lymph # (Auto) 1.4, [place] # (Auto) 0.8, Eos # (Auto) 0.0, Baso # (Auto) 0.0, Total Counted 100, Neutrophils % (Manual) 79 H, Band Neutrophils % 5.0, Lymphocytes % (Manual) 12, Monocytes % (Manual) 4, Platelet Estimate Normal, RBC Morphology Normal 09/15/20 13:03: Urine Color Yellow, Urine Appearance Turbid, Urine pH 5.0, Ur Specific [place] 1.025, Urine Protein 3+, Urine Glucose (UA) Trace, Urine Ketones 1+, Urine Blood 3+, Urine Nitrate Negative, Urine Bilirubin 1+ A, Urine Urobilinogen 1.0, Ur Leukocyte Esterase 2+ A, Urine RBC 10-20, Urine WBC 5-10, Ur Squamous Epith Cells Occasional, Urine Bacteria 1+ 09/15/20 13:03: Sodium 131 L, Potassium 6.7 H*, Chloride 99, Carbon Dioxide 22, Anion Gap 16.7 H, BUN 51 H, Creatinine 3.20 H, Estimated Creat Clear 36, Estimated GFR 19 L*, Est GFR ( Amer) 24 L, Glucose 450 H*, Calcium 9.3, Total Bilirubin 1.0, AST 313 H*, ALT 307 H*, Alkaline Phosphatase 156 H, Total Protein 7.4, Albumin 3.9, Globulin 3.5 H, Albumin/Globulin Ratio 1.1 09/15/20 13:03: Lactate 2.7 H 09/15/20 14:20: SARS-CoV-2 (PCR) Not detected, Influenza A Untype (PCR) Not detected, Influenza Type B (PCR) Not detected Result diagrams: 09/15/20 13:03 09/15/20 13:03 Orders (Tests/Meds): ED MEDICATIONS Generic Name Dose Route Start Last Admin Trade Name Freq PRN Reaso
[2020-09-15 13:18] LABS: Microscopic,Cath URINE MICROSCOPIC (MICROSCOPIC)
[2020-09-15 13:20] LABS: Basophils % 0.2 % (0.1-2.0); Hematocrit 31.2 % (42.0-52.0); Hemoglobin 10.3 g/dL (14.1-18.0); Lymphocytes # 1.4 K/mm3 (0.7-4.5); Lymphocytes % 6.1 % (10-50); Mean Corpuscular HGB Conc 33.1 g/dL (31.8-35.4); Mean Corpuscular Hemoglobin 29.5 pg (27.0-31.2); Mean Corpuscular Volume 89.2 fl (80-94); Monocytes # 0.8 K/mm3 (0.1-1.0); Monocytes % 3.3 % (1.7-9.3); Neutrophils # 21.4 K/mm3 (1.8-7.8); Neutrophils % 90.4 % (37.0-80.0); Platelet Count 319 K/mm3 (142-424); Red Cell Distribution Width 14.6 % (11.5-17.5); White Blood Count 23.7 K/mm3 (4.8-10.8)
[2020-09-15 13:22] LABS: Appearance,Urine/Cath TURBID (Clear); Blood, Urine/Cath 3+ (Negative); Chloride 99 mmol/L (98-107); Color,Urine/Cath YELLOW (Yellow); Glucose,Urine/Cath (UA) TRACE (Negative); Ketones,Urine/Cath 1+ (Negative); Leukocyte Esterase,Cath 2+ (Negative); MANUAL DIFFERENTIAL MANUAL DIFFERENTIAL (MANUAL DIFF); Nitrate,Cath Negative (Negative); Protein,Urine/Cath 3+ (Negative); Sodium 131 mmol/L (136-145); Specific Gravity, Urine/Cath 1.025 (1.005-1.030)
[2020-09-15 13:25] LABS: Alanine Aminotransferase 307 U/L (12-78); Albumin Level 3.9 g/dl (3.5-5.0); Albumin/Globulin Ratio 1.1 (1.1-1.8); Alkaline Phosphatase 156 U/L (38-126); Anion Gap 16.7 mEq/L (5-15); Aspartate Amino Transferase 313 U/L (17-59); Bilirubin,Cath 1+ (Negative); Blood Urea Nitrogen 51 mg/dl (9-20); Calcium 9.3 mg/dl (8.4-10.2); Carbon Dioxide 22 mmol/L (22.0-30.0); Creatinine Clearance Estimated 36 mL/min (50-200); Estimated Glomerular Filt Rate 19 ml/min (>60); GFR (African American) 24 ML/MIN (>60); Globulin 3.5 g/dL (1.3-3.2); Total Protein,Serum 7.4 g/dl (6.3-8.2)
[2020-09-15 13:30] LABS: Lactic Acid 2.7 mmol/L (0.7-2.1)
[2020-09-15 13:32] LABS: Glucose 450 mg/dl (74-100); Potassium 6.7 mmoL/L (3.5-5.1)
--- NOTE | 2020-09-15 13:32 | PC.NURSE ---
dairus in lab called with critical results on pt, K+ 6.7, glucose 450 pt name and verified notified ER of critical results at this time.
[2020-09-15 13:34] LABS: Bacteria,Urine/Cath 1+ /lpf; Squamous Epithelial Ur./Cath Occasional #/hpf (0-5)
[2020-09-15 13:36] LABS: Lymphocytes % 12 % (10-50); Monocytes % 4 % (2-9); Neutrophils % 79 % (42-76); Platelet Estimate Normal; RBC Morphology Normal; Total Cells Counted 100
--- NOTE | 2020-09-15 13:42 | ECG_ITS ---
APPROVED REPORT Exam: Resting ECG HR:55 bpm ECG Measurements Heart Rate 55 AXES AL 132 P 13 QRSd 94 QRS 32 QT 452 T 50 QTc 432 Conclusion Sinus bradycardia Otherwise normal ECG Electronically signed by : Benito Cabezas MD 09/16/2020 07:57:36
--- NOTE | 2020-09-15 13:58 | XR_ITS ---
PROCEDURE: XR CHEST PORTABLE CLINICAL HISTORY: Dyspnea, COVID+, CP COMPARISON: CR CXR CHEST(2 VIEWS-NOT PORTABLE) from 04/27/2013 CR XR CHEST PORTABLE PICC PLAC from 05/25/2019 FINDINGS: The cardiomediastinal silhouette and pulmonary vascularity are within normal limits. Ground-glass attenuation in the right lower lobe and right perihilar region may be seen with Covid19 pneumonia No acute bony abnormalities. IMPRESSION: Right lower lobe pneumonia Dictated by: Emanuel Ferraro MD 09/15/2020 14:50 Emanuel Ferraro MD in [facility] 09/15/2020 14:50
--- NOTE | 2020-09-15 14:09 | PC.NURSE ---
Dr Marrufo talking to Dr Randle
--- NOTE | 2020-09-15 14:20 | PC.NURSE ---
bed assignment requested, room 204, all staff notified
[2020-09-15 14:31] LABS: Coronavirus 19, PCR Not Detected (NotDetected); Influenza A, PCR Not Detected (NotDetected); Influenza B, PCR Not Detected (NotDetected)
[2020-09-15 15:53] LABS: POC Glucose,Bedside 448 (70-110)
--- NOTE | 2020-09-15 16:11 | HMH.PHAVTE ---
[facility] Pharmacy VTE Monitoring - Patient Demographics Admission date: 09/15/20 Report Date: 09/15/20 Time: 16:11 Allergies/Adverse Reactions: Patient Allergies No Known Allergies Allergy (Verified 06/07/19 16:23) Height: 1.7 m Weight: 104.78 kg Patient Problems: Current Active Problems Pedal edema (Acute) Sepsis (Acute) Altered mental status (Acute) Hyperglycemia due to diabetes mellitus (Acute) Abnormal liver function test (Acute) Pneumonia (Acute) PVD (peripheral vascular disease) (Chronic) - VTE Risk Labs: VTE Related Lab Results Hgb 10.3 g/dL (14.1-18.0) L 09/15/20 13:03 Hct 31.2 % (42.0-52.0) L 09/15/20 13:03 Plt Count 319 K/mm3 (142-424) 09/15/20 13:03 BUN 51 mg/dl (9-20) H 09/15/20 13:03 Creatinine 3.20 mg/dl (0.66-1.25) H 09/15/20 13:03 Estimated Creat Clear 36 mL/min (50-200) 09/15/20 13:03 - Prophylaxis VTE Prophylaxis Ordered?: Yes Types of VTE Prophylaxis: Pharmacological Location of Applied Device: Bilateral Lower Extremeties Pharmacologic Type: Other (XARELTO)
--- NOTE | 2020-09-15 16:46 | HMH.HP ---
*Admission Date: 09/15/20 <DyanGlena - 09/15/20 16:55> *Chief complaint: AMS <Alta Zaidi - 09/15/20 16:55> *History of present illness: The patient presented to the emergency department via EMS due to altered mental status. The patient's work-up revealed that the patient was febrile. His urine looked very cloudy. Therefore he was empirically treated for urosepsis. A chest x-ray was obtained and showed a right sided infiltrate consistent with pneumonia. He also has an elevated white blood cell count. His renal functions have worsened since last year. His blood pressure appears to be stable. His potassium was elevated but he has no peaked T waves on EKG. He was hyperglycemic. Appears that the patient is suffering from early sepsis without septic shock. He has been given empiric antibiotics for pneumonia as well as urinary tract infection. He will be admitted to Dr. Randle's service. (above as per ER physician) The patient's states he has not felt well for the past week. She states a few weeks ago he did notice some blood in his urine, but it seemed to improve and she could not get him to go to the doctor. He states he had blood in his urine again today. He has had some nausea, vomiting, and diarrhea since yesterday off-and-on. He has not had anything to eat for 2 days. He is complaining of some pain in his right upper quadrant and epigastric area. He states he has had a slight cough but no other respiratory symptoms. He feels extremely weak and can hardly get out of bed. <Alta Zaidi - 09/15/20 17:39> [facility] History I have reviewed the patient's past medical history: Yes <Alta Zaidi - 09/15/20 16:55> Medical History: Reports:: Congestive Heart Failure (chronic diastolic heart failure) <Vazquez Randle - 09/15/20 21:59> Reports:: Cancer, Congestive Heart Failure, Diabetes Mellitus Type 2, Gastroesophageal Reflux Disease(GERD), Hyperlipidemia, Hypertension, Kidney Stones, Peripheral Vascular Disease Denies:: Diabetes Mellitus Type 1, MRSA, Seizures <Alta Zaidi 09/15/20 16:55> *Have you ever received a pneumonia vaccine?: Yes <Alta Zaidi 09/15/20 16:55> *Have you received a flu vaccine this season?: No <Alta Zaidi 09/15/20 16:55> Other Medical History: Reports: Other (Pulmonary hypertension) <Vazquez Randle 09/15/20 21:59> Denies: Blood Transfusion Reaction <Alta Zaidi 09/15/20 16:55> Other Surgeries: Yes: Cholecystectomy, Colonoscopy, Skin Cancer Excision, Ureter Stent, Other (Kidney stent) <Alta Zaidi 09/15/20 16:55> Amputation: Yes (LT BKA) <Alta Zaidi 09/15/20 16:55> Fractures: No <Alta Zaidi 09/15/20 16:55> - *Social History Last grade of school completed: GED <Alta Zaidi 09/15/20 16:55> Smoking Status: Former smoker <Alta Zaidi 09/15/20 16:55> #Yrs smoked (if former smoker): 35 <Alta Zaidi 09/15/20 16:55> Smoking End Date: 2006 <Alta Zaidi 09/15/20 16:55> Alcohol Intake: never <Alta Zaidi 09/15/20 16:55> Substance Use Type: other <Alta Zaidi 09/15/20 16:55> *Occupational Status:: disabled <Alta Zaidi 09/15/20 16:55> Housing: house <Alta Zadii 09/15/20 16:55> Household Members: spouse <Alta Zaidi 09/15/20 16:55> *Travel in the last 8 weeks: None <Alta Zaidi 09/15/20 16:55> Family Hx:: Coronary Artery Disease, Diabetes <Alta Zaidi 09/15/20 16:55> Review of Systems - Constitutional Reports chills, Reports fever(s), Reports malaise, Reports weakness <Alta Zaidi 09/15/20 17:39> - Eyes Denies blurry vision, Denies double vision <Alta Zaidi 09/15/20 17:39> - ENT Denies nasal congestion, Denies sore throat <Alta Zaidi - 09/15/20 17:39> - *Cardiovascular Reports shortness of breath, Denies chest pain <Alta Zaidi - 09/15/20 17:39> - *Respiratory Reports cough, Reports shortness of breath
[2020-09-15 17:16] LABS: Reflex Lactic Add Lactic Reflex
--- NOTE | 2020-09-15 17:29 | CT_ITS ---
PROCEDURE INFORMATION: Exam: CT Abdomen And Pelvis Without Contrast Exam date and time: 09/15/20 05:29 PM Age: 65 years old Clinical indication: Abdominal tenderness and vomiting and other: Elevated liver enzymes; Prior surgery; Surgery date: 6+ months; Surgery type: Gb; Additional info: Elevated lft's, ruq pain diabetic TECHNIQUE: Imaging protocol: Computed tomography of the abdomen and pelvis without contrast. Radiation optimization: All CT scans at this facility use at least one of these dose optimization techniques: automated exposure control; mA and/or kV adjustment per patient size (includes targeted exams where dose is matched to clinical indication); or iterative reconstruction. COMPARISON: RUQ US RUQ-(ABD LTD)1ORGAN/QUAD/FU 09/16/13 09:38 AM FINDINGS: Tubes, catheters and devices: None noted. Lungs: Right pleural effusion. Compressive atelectasis right base. Heart: No significant coronary calcifications. No cardiomegaly. No significant pericardial effusion. Liver: Normal. No mass. Gallbladder and bile ducts: Cholecystectomy. No ductal dilation. Pancreas: Normal. No ductal dilation. Spleen: Normal. No splenomegaly. Adrenal glands: Normal. No mass. 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 No hydronephrosis. Stomach and bowel: Colonic diverticulosis without diverticulitis. No obstruction. No mucosal thickening. Appendix: No evidence of appendicitis. Intraperitoneal space: Unremarkable. No free air. No significant fluid collection. Retroperitoneal space: No significant retroperitoneal inflammatory changes are noted. Vasculature: Unremarkable. No abdominal aortic aneurysm. Lymph nodes: Unremarkable. No enlarged lymph nodes. Urinary bladder: Unremarkable as visualized. Reproductive: Unremarkable as visualized. Bones/joints: Unremarkable. No acute fracture. Soft tissues: Left axillary mass incompletely imaged 7.7 x 7.4 cm. Subpectoral location. IMPRESSION: 1. Left subpectoral axillary mass 7.7 x 7.3 cm incompletely imaged. Concern for malignancy. 2. 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 3. Right pleural effusion. Compressive atelectasis right base.
[2020-09-15 17:48] LABS: Lipase 14 U/L (23-300)
[2020-09-15 17:54] LABS: Amylase < 30 U/L (30-110)
[2020-09-15 19:00] LABS: Lactic Acid Follow Up (RFLX 1) 1.4 mmol/L (0.7-2.1)
[2020-09-15 21:50] LABS: POC Glucose,Bedside 405 (70-110)
--- NOTE | 2020-09-15 21:59 | HMH.ACPN2 ---
Internal Medicine - PN: Subj *Date: 09/15/20 *Time: 21:59 Interval history: BRIEF F/U NOTE: Abdominal CT scan is returned with the following impression: IMPRESSION: 1. Left subpectoral axillary mass 7.7 x 7.3 cm incompletely imaged. Concern for malignancy. 2. 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 3. Right pleural effusion. Compressive atelectasis right base. Amylase and lipase are normal. Lactic acid has returned to normal. The findings on chest x-ray appear to be due to atelectasis rather than pneumonia. Based on CT findings, antibiotic regimen will be adjusted to include meropenem and vancomycin. Exam Vital signs and Labs for Last 24 Hours: Temp Pulse Resp BP Pulse Ox 98.1 F 65 24 130/69 91 L 09/15/20 20:00 09/15/20 20:00 09/15/20 20:00 09/15/20 20:00 09/15/20 20:00 Laboratory Results - last 24 hr 09/15/20 13:03: WBC 23.7 H*, RBC 3.50 L, Hgb 10.3 L, Hct 31.2 L, MCV 89.2, MCH 29.5, MCHC 33.1, RDW 14.6, Plt Count 319, MPV 9.0, Neut % (Auto) 90.4 H, Lymph % (Auto) 6.1 L, [place] % (Auto) 3.3, Eos % (Auto) 0.0 L, Baso % (Auto) 0.2, Neut # (Auto) 21.4 H, Lymph # (Auto) 1.4, [place] # (Auto) 0.8, Eos # (Auto) 0.0, Baso # (Auto) 0.0, Total Counted 100, Neutrophils % (Manual) 79 H, Band Neutrophils % 5.0, Lymphocytes % (Manual) 12, Monocytes % (Manual) 4, Platelet Estimate Normal, RBC Morphology Normal 09/15/20 13:03: Urine Color Yellow, Urine Appearance Turbid, Urine pH 5.0, Ur Specific [place] 1.025, Urine Protein 3+, Urine Glucose (UA) Trace, Urine Ketones 1+, Urine Blood 3+, Urine Nitrate Negative, Urine Bilirubin 1+ A, Urine Urobilinogen 1.0, Ur Leukocyte Esterase 2+ A, Urine RBC 10-20, Urine WBC 5-10, Ur Squamous Epith Cells Occasional, Urine Bacteria 1+ 09/15/20 13:03: Sodium 131 L, Potassium 6.7 H*, Chloride 99, Carbon Dioxide 22, Anion Gap 16.7 H, BUN 51 H, Creatinine 3.20 H, Estimated Creat Clear 36, Estimated GFR 19 L*, Est GFR ( Amer) 24 L, Glucose 450 H*, Calcium 9.3, Total Bilirubin 1.0, AST 313 H*, ALT 307 H*, Alkaline Phosphatase 156 H, Total Protein 7.4, Albumin 3.9, Globulin 3.5 H, Albumin/Globulin Ratio 1.1 09/15/20 13:03: Lactate 2.7 H 09/15/20 13:03: Amylase < 30 L, Lipase 14 L 09/15/20 14:20: SARS-CoV-2 (PCR) Not detected, Influenza A Untype (PCR) Not detected, Influenza Type B (PCR) Not detected 09/15/20 15:45: POC Glucose 448 H* 09/15/20 18:47: Lactate 1.4 09/15/20 20:47: POC Glucose 405 H* I & O for Last 24 hours: Intake & Output 09/13/20 09/14/20 09/15/20 09/16/20 11:59 11:59 11:59 11:59 Intake Total 490 / 490 Balance 490 / 490 Weight 231 lb Assessment and Plan (1) Emphysematous pyelonephritis Status: Acute Category: Medical Code(s): N12 - Tubulo-interstitial nephritis, not specified as acute or chronic (2) Altered mental status Status: Acute Qualifiers: Altered mental status type: disorientation Qualified Code(s): R41.0 - Disorientation, unspecified Category: Medical Code(s): R41.82 - Altered mental status, unspecified (3) Abnormal liver function test Status: Acute Category: Medical Code(s): R94.5 - Abnormal results of liver function studies (4) Type 2 diabetes mellitus Status: Acute Category: Medical Code(s): E11.9 - Type 2 diabetes mellitus without complications (5) Hyperkalemia Status: Acute Category: Medical Code(s): E87.5 - Hyperkalemia (6) Hyperglycemia due to diabetes mellitus Status: Acute Category: Medical Code(s): E11.65 - Type 2 diabetes mellitus with hyperglycemia (7) PVD (peripheral vascular disease) Status: Chronic Category: Medical Code(s): I73.9 - Peripheral vascular disease, unspecified (8) Diabetic neuropathy associated with type 2 diabetes mellitus Status: Chronic Qualifiers: Diabetes mellitus complication detail: diabetic polyneuropathy Qualified Code(s): E11.42 - Type 2 diabetes mellitus with diabetic polyneuropathy
[2020-09-16] VITALS (8 sets, daily range): BP systolic 110–143; BP diastolic 60–73; PULSE 60–70; RESP 17–26; TEMP 36.6–37.2; O2SAT 85–100; BMI 36.4
--- NOTE | 2020-09-16 00:52 | PC.NURSE ---
1950 received call from [facility] with ct results. [address] dr. bhatt paged and read impression from printed [employer] rad report. no new orders received at this time.
--- NOTE | 2020-09-16 00:53 | PC.NURSE ---
[address] orders [address]. bhatt and carried out.
--- NOTE | 2020-09-16 02:41 | PC.NURSE ---
dr. bhatt notified of low o2 increased resp rate,new orders received.
--- NOTE | 2020-09-16 04:15 | PC.NURSE ---
0200 this rn assessed breathing pattern while sleeping due to increase in resp rate. found o2 sats on room air to be 85% with periods of apnea at which time patient drops to 79%. o2 at 2 l nc applied
--- NOTE | 2020-09-16 05:51 | PC.NURSE ---
patient c/o lower right abdominal pain, denies flank pain rated at 8 out of 10. patient normally takes advil, tylenol given.
[2020-09-16 05:55] LABS: POC Glucose,Bedside 257 (70-110)
[2020-09-16 06:07] LABS: Basophils % 0.2 % (0.1-2.0); Eosinophils % 0.2 % (0.1-12.0); Hemoglobin 9.4 g/dL (14.1-18.0); Lymphocytes # 1.5 K/mm3 (0.7-4.5); Mean Corpuscular HGB Conc 33.7 g/dL (31.8-35.4); Mean Corpuscular Volume 89.1 fl (80-94); Mean Platelet Volume 9.3 fl (7.4-10.4); Monocytes # 0.6 K/mm3 (0.1-1.0); Monocytes % 3.4 % (1.7-9.3); Neutrophils # 16.9 K/mm3 (1.8-7.8); Neutrophils % 88.3 % (37.0-80.0); Platelet Count 243 K/mm3 (142-424); Red Blood Count 3.12 M/mm3 (4.60-6.20); Red Cell Distribution Width 14.6 % (11.5-17.5); White Blood Count 19.1 K/mm3 (4.8-10.8)
[2020-09-16 06:18] LABS: Lactic Acid 1.3 mmol/L (0.7-2.1)
[2020-09-16 06:20] LABS: Alanine Aminotransferase 295 U/L (12-78); Albumin Level 3.6 g/dl (3.5-5.0); Albumin/Globulin Ratio 1.1 (1.1-1.8); Alkaline Phosphatase 127 U/L (38-126); Anion Gap 16.8 mEq/L (5-15); Aspartate Amino Transferase 169 U/L (17-59); Bilirubin,Total 0.7 mg/dl (0.2-1.3); Blood Urea Nitrogen 65 mg/dl (9-20); Calcium 8.7 mg/dl (8.4-10.2); Carbon Dioxide 21 mmol/L (22.0-30.0); Chloride 100 mmol/L (98-107); Creatinine Clearance Estimated 31 mL/min (50-200); Estimated Glomerular Filt Rate 18 ml/min (>60); GFR (African American) 21 ML/MIN (>60); Globulin 3.4 g/dL (1.3-3.2); Glucose 258 mg/dl (74-100); Potassium 5.8 mmoL/L (3.5-5.1); Sodium 132 mmol/L (136-145)
[2020-09-16 06:24] LABS: Hematocrit 27.8 % (42.0-52.0)
--- NOTE | 2020-09-16 06:25 | PC.NURSE ---
pain level increased after receiving tylenol, dr. bhatt paged and notified of pain as well as preliminary positive blood cultures. new order received.
[2020-09-16 06:26] LABS: MANUAL DIFFERENTIAL MANUAL DIFFERENTIAL (MANUAL DIFF)
[2020-09-16 06:55] LABS: Lymphocytes % 8 % (10-50); Neutrophils % 82 % (42-76); Platelet Estimate Normal; RBC Morphology Normal; Rouleaux 2+; Total Cells Counted 100
--- NOTE | 2020-09-16 08:29 | HMH.PHACONS ---
- Pharmacy Consult Date: 09/16/20 Time: 08:29 Referring provider: DR. UPTON Reason for Consult:: VANCOMYCIN DOSING Allergies and ADEs:: Allergies Allergy/AdvReac Type Severity Reaction Status Date / Time No Known Allergies Allergy Verified 06/07/19 16:23 Home Medications:: Home Medications Medication Instructions Recorded Confirmed Type atorvastatin 40 mg tablet 40 mg PO DAILY 05/18/19 09/15/20 History glimepiride 4 mg tablet 2 mg PO DAILY 05/18/19 09/15/20 History insulin glargine 100 unit/mL 30 units SQ PM 05/18/19 09/15/20 History subcutaneous solution metformin 1,000 mg tablet 1,000 mg PO BID 05/18/19 09/15/20 History Vit A/Vit C/Vit E/Zinc/Copper 1 tab PO DAILY 05/25/19 09/15/20 History [Preservision Areds Tablet] Gabapentin [Gabapentin 300mg Cap] 600 mg PO BID #60 cap 05/28/19 09/15/20 Rx [id number]-min 1 tab PO DAILY 06/07/19 09/15/20 History 3,300 unit-5 mg-200mg-75 unit tablet ER Aspirin 81 mg PO DAILY 09/15/20 09/15/20 History Furosemide [Lasix 20mg tab] 20 mg PO DAILY 09/15/20 09/15/20 History Iron [Iron 18mg Tab] 65 mg PO DAILY 09/15/20 09/15/20 History Omeprazole [Omeprazole 40mg 40 mg PO BID 09/15/20 09/15/20 History Capsule] Rivaroxaban [Xarelto 2.5mg Tab*] 2.5 mg PO BID 09/15/20 09/15/20 History Spironolactone [Spironolactone 25 mg PO DAILY 09/15/20 09/15/20 History 25mg Tablet] Tamsulosin HCl 0.4 mg PO DAILY 09/15/20 09/15/20 History carvediloL [Coreg 6.25mg 6.25 mg PO BID 09/15/20 09/15/20 History Tablet] hydroCHLOROthiazide [HCTZ 25mg 25 mg PO DAILY 09/15/20 09/15/20 History tab] lisinopriL [Zestril 20mg tab] 20 mg PO BID 09/15/20 09/15/20 History Height: 1.7 m Weight: 105.432 kg Laboratory Results:: Laboratory Results - last 24 hr 09/15/20 13:03: WBC 23.7 H*, RBC 3.50 L, Hgb 10.3 L, Hct 31.2 L, MCV 89.2, MCH 29.5, MCHC 33.1, RDW 14.6, Plt Count 319, MPV 9.0, Neut % (Auto) 90.4 H, Lymph % (Auto) 6.1 L, [place] % (Auto) 3.3, Eos % (Auto) 0.0 L, Baso % (Auto) 0.2, Neut # (Auto) 21.4 H, Lymph # (Auto) 1.4, [place] # (Auto) 0.8, Eos # (Auto) 0.0, Baso # (Auto) 0.0, Total Counted 100, Neutrophils % (Manual) 79 H, Band Neutrophils % 5.0, Lymphocytes % (Manual) 12, Monocytes % (Manual) 4, Platelet Estimate Normal, RBC Morphology Normal 09/15/20 13:03: Urine Color Yellow, Urine Appearance Turbid, Urine pH 5.0, Ur Specific [place] 1.025, Urine Protein 3+, Urine Glucose (UA) Trace, Urine Ketones 1+, Urine Blood 3+, Urine Nitrate Negative, Urine Bilirubin 1+ A, Urine Urobilinogen 1.0, Ur Leukocyte Esterase 2+ A, Urine RBC 10-20, Urine WBC 5-10, Ur Squamous Epith Cells Occasional, Urine Bacteria 1+ 09/15/20 13:03: Sodium 131 L, Potassium 6.7 H*, Chloride 99, Carbon Dioxide 22, Anion Gap 16.7 H, BUN 51 H, Creatinine 3.20 H, Estimated Creat Clear 36, Estimated GFR 19 L*, Est GFR ( Amer) 24 L, Glucose 450 H*, Calcium 9.3, Total Bilirubin 1.0, AST 313 H*, ALT 307 H*, Alkaline Phosphatase 156 H, Total Protein 7.4, Albumin 3.9, Globulin 3.5 H, Albumin/Globulin Ratio 1.1 09/15/20 13:03: Lactate 2.7 H 09/15/20 13:03: Amylase < 30 L, Lipase 14 L 09/15/20 14:20: SARS-CoV-2 (PCR) Not detected, Influenza A Untype (PCR) Not detected, Influenza Type B (PCR) Not detected 09/15/20 15:45: POC Glucose 448 H* 09/15/20 18:47: Lactate 1.4 09/15/20 20:47: POC Glucose 405 H* 09/16/20 05:40: POC Glucose 257 H 09/16/20 05:57: Sodium 132 L, Potassium 5.8 H, Chloride 100, Carbon Dioxide 21 L, Anion Gap 16.8 H, BUN 65 H D, Creatinine 3.50 H, Estimated Creat Clear 31, Estimated GFR 18 L*, Est GFR ( Amer) 21 L, Glucose 258 H D, Calcium 8.7, Total Bilirubin 0.7, AST 169 H D, ALT 295 H, Alkaline Phosphatase 127 H, Total Protein 7.0, Albumin 3.6, Globulin 3.4 H, Albumin/Globulin Ratio 1.1 09/16/20 05:57: Lactate 1.3 09/16/20 05:57: WBC 19.1 H, RBC 3.12 L, Hgb 9.4 L, Hct 27.8 L, MCV 89.1, MCH 30.0, MCHC 33.7, RDW 14.6, Plt Count 243, MPV 9.3, Neut % (Auto) 88.3 H, Lymph % (Au
--- NOTE | 2020-09-16 09:28 | HMH.ACPN2 ---
<Alta Zaidi - Last Filed: 09/16/20 09:28> Internal Medicine - PN: Subj *Date: 09/16/20 *Time: 09:28 Interval history: Patient states he feels about the same today. He has not had any further vomiting. He did receive morphine for his abdominal pain and it improved. His antibiotics were changed to meropenem and vancomycin yesterday after results of his CT showed emphysematous pyelonephritis. He continues to feel extremely weak. Exam Vital signs and Labs for Last 24 Hours: Temp Pulse Resp BP Pulse Ox 98.0 F 68 20 136/66 100 09/16/20 08:00 09/16/20 08:00 09/16/20 08:00 09/16/20 08:00 09/16/20 08:00 Laboratory Results - last 24 hr 09/15/20 13:03: WBC 23.7 H*, RBC 3.50 L, Hgb 10.3 L, Hct 31.2 L, MCV 89.2, MCH 29.5, MCHC 33.1, RDW 14.6, Plt Count 319, MPV 9.0, Neut % (Auto) 90.4 H, Lymph % (Auto) 6.1 L, Rice % (Auto) 3.3, Eos % (Auto) 0.0 L, Baso % (Auto) 0.2, Neut # (Auto) 21.4 H, Lymph # (Auto) 1.4, Rice # (Auto) 0.8, Eos # (Auto) 0.0, Baso # (Auto) 0.0, Total Counted 100, Neutrophils % (Manual) 79 H, Band Neutrophils % 5.0, Lymphocytes % (Manual) 12, Monocytes % (Manual) 4, Platelet Estimate Normal, RBC Morphology Normal 09/15/20 13:03: Urine Color Yellow, Urine Appearance Turbid, Urine pH 5.0, Ur Specific [place] 1.025, Urine Protein 3+, Urine Glucose (UA) Trace, Urine Ketones 1+, Urine Blood 3+, Urine Nitrate Negative, Urine Bilirubin 1+ A, Urine Urobilinogen 1.0, Ur Leukocyte Esterase 2+ A, Urine RBC 10-20, Urine WBC 5-10, Ur Squamous Epith Cells Occasional, Urine Bacteria 1+ 09/15/20 13:03: Sodium 131 L, Potassium 6.7 H*, Chloride 99, Carbon Dioxide 22, Anion Gap 16.7 H, BUN 51 H, Creatinine 3.20 H, Estimated Creat Clear 36, Estimated GFR 19 L*, Est GFR ( Amer) 24 L, Glucose 450 H*, Calcium 9.3, Total Bilirubin 1.0, AST 313 H*, ALT 307 H*, Alkaline Phosphatase 156 H, Total Protein 7.4, Albumin 3.9, Globulin 3.5 H, Albumin/Globulin Ratio 1.1 09/15/20 13:03: Lactate 2.7 H 09/15/20 13:03: Amylase < 30 L, Lipase 14 L 09/15/20 14:20: SARS-CoV-2 (PCR) Not detected, Influenza A Untype (PCR) Not detected, Influenza Type B (PCR) Not detected 09/15/20 15:45: POC Glucose 448 H* 09/15/20 18:47: Lactate 1.4 09/15/20 20:47: POC Glucose 405 H* 09/16/20 05:40: POC Glucose 257 H 09/16/20 05:57: Sodium 132 L, Potassium 5.8 H, Chloride 100, Carbon Dioxide 21 L, Anion Gap 16.8 H, BUN 65 H D, Creatinine 3.50 H, Estimated Creat Clear 31, Estimated GFR 18 L*, Est GFR ( Amer) 21 L, Glucose 258 H D, Calcium 8.7, Total Bilirubin 0.7, AST 169 H D, ALT 295 H, Alkaline Phosphatase 127 H, Total Protein 7.0, Albumin 3.6, Globulin 3.4 H, Albumin/Globulin Ratio 1.1 09/16/20 05:57: Lactate 1.3 09/16/20 05:57: WBC 19.1 H, RBC 3.12 L, Hgb 9.4 L, Hct 27.8 L, MCV 89.1, MCH 30.0, MCHC 33.7, RDW 14.6, Plt Count 243, MPV 9.3, Neut % (Auto) 88.3 H, Lymph % (Auto) 8.0 L, Rice % (Auto) 3.4, Eos % (Auto) 0.2, Baso % (Auto) 0.2, Neut # (Auto) 16.9 H, Lymph # (Auto) 1.5, Rice # (Auto) 0.6, Eos # (Auto) 0.0, Baso # (Auto) 0.0, Total Counted 100, Neutrophils % (Manual) 82 H, Band Neutrophils % 10.0 H, Lymphocytes % (Manual) 8 L, Platelet Estimate Normal, RBC Morphology Normal, Rouleaux 2+ I & O for Last 24 hours: Intake & Output 09/13/20 09/14/20 09/15/20 09/16/20 11:59 11:59 11:59 11:59 Intake Total 490 / 490 Balance 490 / 490 Weight 232 lb 7 oz Microbiology Reports for the Last 24 Hours: Microbiology 09/15/20 13:03 Blood Blood Culture - Preliminary Gram Negative Rods 09/15/20 13:03 Blood Blood Culture - Preliminary Gram Negative Rods 09/15/20 13:03 Urine,Catheterized Urine Culture - Preliminary - Constitutional Comments: Does not appear to feel well - *Routine HEENT Exam Head: Present: normocephalic Eye: Present: EOMI, PERRL ENT: Present: mucous membranes dry - *Routine Neck Exam Present: supple. Absent: lymphadenopathy - Routine Chest/Breast/
[2020-09-16 12:20] LABS: POC Glucose,Bedside 199 (70-110)
--- NOTE | 2020-09-16 13:34 | HMH.PHAINT ---
MEDICATION RECONCILIATION COMPLETE USING EXTERNAL PHARMACY FILL HISTORY AND PATIENT/SPOUSE INTERVIEW.
--- NOTE | 2020-09-16 15:03 | PC.NURSE ---
pt up in chair, cup given to pt for sputum sample. Pt stated he would try to produce one.
[2020-09-16 17:47] LABS: POC Glucose,Bedside 185 (70-110)
--- NOTE | 2020-09-16 17:58 | PC.NURSE ---
Pt has been pleasant and cooperative this shift. A&O X4. Pt has complained of pain X1 and received Morphine per MAR with favorable results. Pt is currently receiving O2 via NC @ 2 LPM with sats. >90%. Lungs CTA. 2+ pitting edema noted to RLE. LT BKA present. Telemetry reveals NSR. Pt was mechanically lifted into the recliner this AM and sat up for the majority of the day. Pt is currently back in bed and will be turned/repositioned Q2H. Pt is incontinent and a brief is in place. Urine is clear and yellow. No BM this shift. Pt is receiving clear liquids and is tolerating well. Pt has been instructed to provide a sputum sample and a stool sample. Specimen cups available at bedside. 20 G peripheral IV in the LT AC is patent and SL. 20 G peripheral IV in the RT hand is patent and infusing NS @ 100 ML/HR. VSS. Call light within reach. Will continue to monitor.
[2020-09-16 22:18] LABS: POC Glucose,Bedside 186 (70-110)
[2020-09-17] VITALS: BP 140/71; PULSE 70; RESP 17; TEMP 36.8; O2SAT 97
[2020-09-17 04:00] VITALS: BP 142/71; PULSE 70; PULSE 71; RESP 16; TEMP 36.6; O2SAT 99
[2020-09-17 05:23] VITALS: BMI 37.5
[2020-09-17 05:51] LABS: POC Glucose,Bedside 148 (70-110)
[2020-09-17 08:00] VITALS: BP 129/62; PULSE 67; PULSE 71; RESP 18; TEMP 36.9; O2SAT 91
[2020-09-17 09:49] LABS: Chloride 105 mmol/L (98-107); Sodium 134 mmol/L (136-145)
[2020-09-17 09:52] LABS: Blood Urea Nitrogen 72 mg/dl (9-20); Carbon Dioxide 20 mmol/L (22.0-30.0); Creatinine Clearance Estimated 34 mL/min (50-200); Estimated Glomerular Filt Rate 19 ml/min (>60); GFR (African American) 24 ML/MIN (>60)
--- NOTE | 2020-09-17 09:52 | HMH.ACPN2 ---
Internal Medicine - PN: Subj *Date: 09/17/20 *Time: 09:52 Interval history: Continues to complain of right-sided abdominal pain which is controlled with morphine. He is also having more pain from the left axillary mass. He is tolerating liquids. Does not feel hungry. No further vomiting. Morning labs are pending. Exam Vital signs and Labs for Last 24 Hours: Temp Pulse Resp BP Pulse Ox 98.4 F 67 18 129/62 91 L 09/17/20 08:00 09/17/20 08:00 09/17/20 08:00 09/17/20 08:00 09/17/20 08:00 Laboratory Results - last 24 hr 09/16/20 11:51: POC Glucose 199 H 09/16/20 17:36: POC Glucose 185 H 09/16/20 22:04: POC Glucose 186 H 09/17/20 05:21: POC Glucose 148 H I & O for Last 24 hours: Intake & Output 09/14/20 09/15/20 09/16/20 09/17/20 11:59 11:59 11:59 11:59 Intake Total 490 / 490 4442 / 4442 Output Total 700 / 700 Balance 490 / 490 3742 / 3742 Weight 232 lb 7 oz 239 lb 9 oz Microbiology Reports for the Last 24 Hours: Microbiology 09/15/20 13:03 Blood Blood Culture - Preliminary Gram Negative Rods 09/15/20 13:03 Blood Blood Culture - Preliminary Gram Negative Rods 09/15/20 13:03 Urine,Catheterized Urine Culture - Preliminary Gram Negative Rods Gram Negative Rods#2 Narrative: He is awake and alert. Color is pale. Lungs are clear anteriorly. Heart is regular. Large left anterior axillary mass that is tender to palpation. Abdomen is soft and nondistended with faint bowel sounds. Mild to moderate right mid and lower abdominal tenderness. Extremities with 1-2+ edema of the right leg. Assessment and Plan (1) Emphysematous pyelonephritis Status: Acute Category: Medical Code(s): N12 - Tubulo-interstitial nephritis, not specified as acute or chronic (2) Altered mental status Status: Acute Qualifiers: Altered mental status type: disorientation Qualified Code(s): R41.0 - Disorientation, unspecified Category: Medical Code(s): R41.82 - Altered mental status, unspecified (3) Abnormal liver function test Status: Acute Category: Medical Code(s): R94.5 - Abnormal results of liver function studies (4) Type 2 diabetes mellitus Status: Acute Category: Medical Code(s): E11.9 - Type 2 diabetes mellitus without complications (5) Hyperkalemia Status: Acute Category: Medical Code(s): E87.5 - Hyperkalemia (6) Hyperglycemia due to diabetes mellitus Status: Acute Category: Medical Code(s): E11.65 - Type 2 diabetes mellitus with hyperglycemia (7) PVD (peripheral vascular disease) Status: Chronic Category: Medical Code(s): I73.9 - Peripheral vascular disease, unspecified (8) Diabetic neuropathy associated with type 2 diabetes mellitus Status: Chronic Qualifiers: Diabetes mellitus complication detail: diabetic polyneuropathy Qualified Code(s): E11.42 - Type 2 diabetes mellitus with diabetic polyneuropathy Category: Medical Code(s): E11.40 - Type 2 diabetes mellitus with diabetic neuropathy, unspecified (9) Hyperlipidemia Status: Chronic Category: Medical Code(s): E78.5 - Hyperlipidemia, unspecified (10) PAD (peripheral artery disease) Status: Chronic Category: Medical Code(s): I73.9 - Peripheral vascular disease, unspecified (11) Nausea vomiting and diarrhea Status: Acute Category: Medical Code(s): R11.2 - Nausea with vomiting, unspecified; R19.7 - Diarrhea, unspecified (12) Abdominal pain, right upper quadrant Status: Acute Category: Medical Code(s): R10.11 - Right upper quadrant pain (13) Axillary mass Status: Acute Category: Medical Code(s): R22.30 - Localized swelling, mass and lump, unspecified upper limb (14) Hx of peptic ulcer Status: Acute Category: Medical Code(s): Z87.11 - Personal history of peptic ulcer disease (15) Acute renal failure St
[2020-09-17 09:53] LABS: Calcium 8.3 mg/dl (8.4-10.2); Glucose 147 mg/dl (74-100)
[2020-09-17 10:55] LABS: Basophils # 0.1 K/mm3 (0-0.2); Basophils % 0.2 % (0.1-2.0); Eosinophils # 0.1 K/mm3 (0.0-0.4); Eosinophils % 0.5 % (0.1-12.0); Hematocrit 26.8 % (42.0-52.0); Hemoglobin 9.1 g/dL (14.1-18.0); Lymphocytes # 1.2 K/mm3 (0.7-4.5); Lymphocytes % 6.5 % (10-50); Mean Corpuscular HGB Conc 34.1 g/dL (31.8-35.4); Mean Corpuscular Hemoglobin 30.3 pg (27.0-31.2); Mean Platelet Volume 10.1 fl (7.4-10.4); Monocytes # 0.9 K/mm3 (0.1-1.0); Neutrophils # 16.4 K/mm3 (1.8-7.8); Neutrophils % 87.7 % (37.0-80.0); Platelet Count 273 K/mm3 (142-424); Red Blood Count 3.01 M/mm3 (4.60-6.20); Red Cell Distribution Width 14.5 % (11.5-17.5); White Blood Count 18.7 K/mm3 (4.8-10.8)
[2020-09-17 11:01] LABS: MANUAL DIFFERENTIAL MANUAL DIFFERENTIAL (MANUAL DIFF)
[2020-09-17 11:47] LABS: POC Glucose,Bedside 140 (70-110)
[2020-09-17 12:00] VITALS: BP 159/85; PULSE 67; PULSE 68; RESP 18; TEMP 36.7; O2SAT 94
[2020-09-17 13:21] LABS: Eosinophils % 2 % (0-3); Lymphocytes % 8 % (10-50); Monocytes % 2 % (2-9); Neutrophils % 88 % (42-76); Platelet Estimate Normal; RBC Morphology Normal; Total Cells Counted 100
[2020-09-17 16:00] VITALS: BP 135/70; PULSE 70; RESP 18; TEMP 36.9; O2SAT 94
[2020-09-17 16:48] LABS: POC Glucose,Bedside 133 (70-110)
--- NOTE | 2020-09-17 17:56 | PC.NURSE ---
Pt has been pleasant and cooperative this shift. A&O X4. Pt has complained of pain X2 thus far today and received Morphine per MAR with favorable results. Pt is currently on room air with sats. >90%. Lungs CTA. 1+ pitting edema noted to RLE. LT BKA present. Telemetry reveals NSR. Pt was mechanically lifted into the recliner this AM and sat up for a few hours. Pt has been turned/repositioned Q2H. FSBS results have been 140 and 133. Pt uses the urinal to void. Urine is clear and yellow. No BM this shift. Pt is receiving clear liquids and is tolerating well. Pt has been instructed to provide a sputum sample and a stool sample. Specimen cups available at bedside. 20 G peripheral IV in the LT AC is patent and infusing NS @ 100 ML/HR. VSS. Call light within reach. Will continue to monitor.
[2020-09-17 20:00] VITALS: BP 170/79; PULSE 70; PULSE 73; RESP 18; TEMP 36.9; O2SAT 96
[2020-09-17 22:02] LABS: POC Glucose,Bedside 149 (70-110)
[2020-09-18] VITALS (9 sets, daily range): BP systolic 122–166; BP diastolic 69–81; PULSE 57–86; RESP 18–20; TEMP 36.6–36.9; O2SAT 92–94; BMI 37.2; BMI 34.1
[2020-09-18 05:50] LABS: POC Glucose,Bedside 114 (70-110)
[2020-09-18 06:17] LABS: Basophils % 0.2 % (0.1-2.0); Eosinophils # 0.1 K/mm3 (0.0-0.4); Eosinophils % 0.4 % (0.1-12.0); Hemoglobin 9.1 g/dL (14.1-18.0); Lymphocytes # 1.7 K/mm3 (0.7-4.5); Lymphocytes % 9.7 % (10-50); Mean Corpuscular HGB Conc 32.8 g/dL (31.8-35.4); Mean Corpuscular Volume 88.4 fl (80-94); Mean Platelet Volume 9.1 fl (7.4-10.4); Monocytes % 5.9 % (1.7-9.3); Neutrophils # 14.6 K/mm3 (1.8-7.8); Neutrophils % 83.8 % (37.0-80.0); Platelet Count 272 K/mm3 (142-424); Red Blood Count 3.13 M/mm3 (4.60-6.20); Red Cell Distribution Width 14.7 % (11.5-17.5); White Blood Count 17.5 K/mm3 (4.8-10.8)
[2020-09-18 06:18] LABS: Hematocrit 27.7 % (42.0-52.0)
[2020-09-18 06:19] LABS: MANUAL DIFFERENTIAL MANUAL DIFFERENTIAL (MANUAL DIFF)
[2020-09-18 06:36] LABS: Chloride 107 mmol/L (98-107); Lymphocytes % 7 % (10-50); Monocytes % 1 % (2-9); Neutrophils % 79 % (42-76); Potassium 4.8 mmoL/L (3.5-5.1); Sodium 136 mmol/L (136-145); Total Cells Counted 100
[2020-09-18 06:37] LABS: Platelet Estimate Normal; RBC Morphology Normal; Rouleaux 3+
[2020-09-18 06:39] LABS: Anion Gap 14.8 mEq/L (5-15); Blood Urea Nitrogen 70 mg/dl (9-20); Carbon Dioxide 19 mmol/L (22.0-30.0); Creatinine Clearance Estimated 39 mL/min (50-200); Estimated Glomerular Filt Rate 23 ml/min (>60); GFR (African American) 27 ML/MIN (>60); Glucose 109 mg/dl (74-100)
--- NOTE | 2020-09-18 08:55 | HMH.ACPN2 ---
<Ghazal Burton - Last Filed: 09/18/20 08:55> Internal Medicine - PN: Subj *Date: 09/18/20 *Time: 07:50 Interval history: Pt is sitting up on the side of bed and appears drowsy. He is tolerating clears without nausea. He continues with right-sided abdominal and left axillary pain. He is voiding without difficulty. Exam Vital signs and Labs for Last 24 Hours: Temp Pulse Resp BP Pulse Ox 97.9 F 66 18 156/74 H 92 L 09/18/20 08:00 09/18/20 08:00 09/18/20 08:00 09/18/20 08:00 09/18/20 08:00 Laboratory Results - last 24 hr 09/17/20 08:40: WBC 18.7 H, RBC 3.01 L, Hgb 9.1 L, Hct 26.8 L, MCV 89.0, MCH 30.3, MCHC 34.1, RDW 14.5, Plt Count 273, MPV 10.1, Neut % (Auto) 87.7 H, Lymph % (Auto) 6.5 L, Starr % (Auto) 5.0, Eos % (Auto) 0.5, Baso % (Auto) 0.2, Neut # (Auto) 16.4 H, Lymph # (Auto) 1.2, Starr # (Auto) 0.9, Eos # (Auto) 0.1, Baso # (Auto) 0.1, Total Counted 100, Neutrophils % (Manual) 88 H, Lymphocytes % (Manual) 8 L, Monocytes % (Manual) 2, Eosinophils % (Manual) 2, Platelet Estimate Normal, RBC Morphology Normal 09/17/20 08:40: Sodium 134 L, Potassium 5.0, Chloride 105, Carbon Dioxide 20 L, Anion Gap 14.0, BUN 72 H, Creatinine 3.20 H, Estimated Creat Clear 34, Estimated GFR 19 L*, Est GFR ( Amer) 24 L, Glucose 147 H, Calcium 8.3 L 09/17/20 11:21: POC Glucose 140 H 09/17/20 16:34: POC Glucose 133 H 09/17/20 21:41: POC Glucose 149 H 09/18/20 05:32: POC Glucose 114 H 09/18/20 05:34: WBC 17.5 H, RBC 3.13 L, Hgb 9.1 L, Hct 27.7 L, MCV 88.4, MCH 29.0, MCHC 32.8, RDW 14.7, Plt Count 272, MPV 9.1, Neut % (Auto) 83.8 H, Lymph % (Auto) 9.7 L, Starr % (Auto) 5.9, Eos % (Auto) 0.4, Baso % (Auto) 0.2, Neut # (Auto) 14.6 H, Lymph # (Auto) 1.7, Starr # (Auto) 1.0, Eos # (Auto) 0.1, Baso # (Auto) 0.0, Total Counted 100, Neutrophils % (Manual) 79 H, Band Neutrophils % 13.0 H, Lymphocytes % (Manual) 7 L, Monocytes % (Manual) 1 L, Platelet Estimate Normal, RBC Morphology Normal, [place] 3+ 09/18/20 05:34: Sodium 136, Potassium 4.8, Chloride 107, Carbon Dioxide 19 L, Anion Gap 14.8, BUN 70 H, Creatinine 2.80 H, Estimated Creat Clear 39, Estimated GFR 23 L, Est GFR ( Amer) 27 L, Glucose 109 H D, Calcium 8.0 L I & O for Last 24 hours: Intake & Output 09/15/20 09/16/20 09/17/20 09/18/20 11:59 11:59 11:59 11:59 Intake Total 490 / 490 4442 / 4442 3558 / 3558 Output Total 700 / 700 1450 / 1450 Balance 490 / 490 3742 / 3742 2108 / 2108 Weight 232 lb 7 oz 239 lb 9 oz 231 lb 4 oz Microbiology Reports for the Last 24 Hours: Microbiology 09/15/20 13:03 Urine,Catheterized Urine Culture - Final Escherichia coli 09/15/20 13:03 Blood Blood Culture - Final Escherichia coli 09/15/20 13:03 Blood Blood Culture - Final Escherichia coli - Constitutional no acute distress - *Routine HEENT Exam Head: Present: normocephalic, atraumatic ENT: Present: mucous membranes moist - *Routine Respiratory Exam Present: CTA bilaterally - *Routine Cardiovascular Exam Present: RRR - *Routine Abdominal Exam Present: soft, normoactive bowel sounds. Absent: distended Comments: RLQ ttp with some guarding - *Routine Extremities Exam Present: full ROM, pulses intact. Absent: extremity cold to touch Comments: large, tender left axillary mass - *Routine Neurological Exam Present: alert, oriented X3, moving all extremities, normal speech Assessment and Plan (1) Emphysematous pyelonephritis Status: Acute Category: Medical Code(s): N12 - Tubulo-interstitial nephritis, not specified as acute or chronic (2) Altered mental status Status: Acute Qualifiers: Altered mental status type: disorientation Qualified Code(s): R41.0 - Disorientation, unspecified Category: Medical Code(s): R41.82 - Altered mental status, unspecified (3) Abnormal liver function test Status: Acute Category: Medical Code(s): R94.5 - Abnor
--- NOTE | 2020-09-18 10:04 | SW/DCPLANNER ---
I spoke with this patient this AM regarding plans once stable for discharge. Patient stated that he has been to [facility] and [facility] in the past: does NOT want to return to either of these facilities. I have spoke with patient regarding [facility] (willing to go to this facility) and [facility] (would need to speak with his regarding this facility). I spoke with patients whom is interested in placement stating I can not care for this patient at home right now, but if he wants to come home I will take him back . Terri with [facility] is unsure of bed availability: patient information has been faxed to [facility] for Terri to review. I will continue to follow up with MD/patient/. Discharge date is unknown at this time.
--- NOTE | 2020-09-18 10:56 | HMH.OTEV ---
OT Inpatient Evaluation Rehab OT IP Evaluation Start: 09/18/20 09:34 Freq: ONCE Status: Complete Protocol: Document 09/18/20 10:48 [facility] (Rec: 09/18/20 10:56 [facility] [id number]) Rehab OT IP Assessment Subjective History Pt oriented x 2 on arrival. Pt was admitted via ED for AMS on 09/15/20. Pt has a past medical history of CHF, Cancer , Congestive Heart Failure, Diabetes Mellitus Type 2, Gastroesophageal Reflux Disease(GERD), Hyperlipidemia, Hypertension, Kidney Stones, Peripheral Vascular Disease. Pt reports prior to hospital stay he lived at home with his . Pt has a L BKA. Pt did not have his prosthetic leg. He reports normally he is in a wheelchair at home and uses a sliding board to complete transfers. However, he did explain he is able to stand if he has his prosthetic leg on. Pt claims he requires assistance with all ADLs such as dressing and sponge bathing. He does have visual impairments so he requires set up of food. He is dependent upon his to complete all IADLs. Pt refused to transfer to chair, but agreeable to complete sit to stands after MAX verbal cues for encouragement. He completed two sit to stands with rolling walker and maxx2 assistance. Subjective I am not sitting in the chair because I want to sit here! Objective Patient Orientation Person,Birthday Upper Extremity Gross ROM WFL Bed Mobility bed mobility-scooting,bed mobility - supine/sit,bed mobility - rolling Assist Level Contact Guard/Hand Hold Rehab OT IP prob,goals,plan Problems Date of Evaluation: 09/18/20 OT IP Problems Bed Mobility,Transfers,Gait, Balance,Self care,Safety Rehab Potential
[2020-09-18 12:10] LABS: POC Glucose,Bedside 107 (70-110)
--- NOTE | 2020-09-18 14:20 | DIET.NUTRFU ---
Tolerating clears without nausea, PO intakes 50%. Recommend advancing diet as tolerated. Weight stable, 1+edema. K normalized, BG normalized avg.-130.
--- NOTE | 2020-09-18 14:28 | HMH.CONS ---
*Admission Date: 09/15/20 *Reason for consult:: Emphysematous pyelonephritis *History of present illness: Patient is a 65-year-old white male with a history of diabetes who was brought to the emergency room on September 15 for mental status changes is blind. He is also complaining of some right-sided abdominal pain. Work-up in the emergency room revealed an elevated white count to 23,000. Patient was febrile and his urine was cloudy. Labs also revealed sepsis. He was found into very hard to get out of bed due to some extreme weakness over the last couple of days. His renal function was elevated to a 3.2 and his potassium was elevated at 6.7. He was admitted to the hospital and started on broad-spectrum antibiotics. CT scan showed air in the collecting system on the right side without evidence of stone or hydronephrosis. There was also a left subpectoral axillary mass that was 7 x 7 cm that was concerning for malignancy. Patient also has a right pleural effusion. Over the ensuing 2 days count has improved and was 17.5 today his renal function is improved with a creatinine of 3.8. His urine and blood cultures are positive for E. coli. [facility] History Medical History: Reports:: Cancer, Congestive Heart Failure (chronic diastolic heart failure), Diabetes Mellitus Type 2, Gastroesophageal Reflux Disease(GERD), Hyperlipidemia, Hypertension, Kidney Stones, Peripheral Vascular Disease Denies:: Diabetes Mellitus Type 1, MRSA, Seizures *Have you ever received a pneumonia vaccine?: Yes *Have you received a flu vaccine this season?: No Other Medical History: Reports: Other (Pulmonary hypertension). Denies: Blood Transfusion Reaction Other Surgeries: Yes: Cholecystectomy, Colonoscopy, Skin Cancer Excision, Ureter Stent, Other (Kidney stent) Amputation: Yes (LT BKA) Fractures: No - *Social History Last grade of school completed: GED Smoking Status: Former smoker #Yrs smoked (if former smoker): 35 Smoking End Date: 2006 Alcohol Intake: never Substance Use Type: other *Occupational Status:: disabled Housing: house Household Members: spouse *Travel in the last 8 weeks: None Family Hx:: Coronary Artery Disease, Diabetes Review of Systems - Review of Systems Review of systems:: pertinent systems reviewed and negative unless documented below - *Neurologic Reports weakness, Denies headache(s), Denies dizziness Meds Home Medications Medication Instructions Recorded Confirmed Type atorvastatin 40 mg tablet 40 mg PO DAILY 05/18/19 09/15/20 History metformin 1,000 mg tablet 1,000 mg PO BID 05/18/19 09/15/20 History [id number]-min 1 tab PO DAILY 06/07/19 09/16/20 History 3,300 unit-5 mg-200mg-75 unit tablet ER Aspirin 81 mg PO DAILY 09/15/20 09/16/20 History Iron [Iron 18mg Tab] 65 mg PO DAILY 09/15/20 09/16/20 History Omeprazole [Omeprazole 40mg 40 mg PO DAILY 09/15/20 09/16/20 History Capsule] Rivaroxaban [Xarelto 2.5mg Tab*] 2.5 mg PO BID 09/15/20 09/15/20 History Spironolactone [Spironolactone 25 mg PO DAILY 09/15/20 09/15/20 History 25mg Tablet] Tamsulosin HCl 0.4 mg PO DAILY 09/15/20 09/15/20 History carvediloL [Coreg 6.25mg 6.25 mg PO BID 09/15/20 09/15/20 History Tablet] hydroCHLOROthiazide [HCTZ 25mg 25 mg PO DAILY 09/15/20 09/15/20 History tab] lisinopriL [Zestril 20mg tab] 20 mg PO BID 09/15/20 09/15/20 History Gabapentin [Neurontin 600mg 600 mg PO TID 09/16/20 09/16/20 History tablet] Glimepiride [Amaryl] 2 mg PO DAILY 09/16/20 09/16/20 History Insulin Detemir [Levemir 100 35 - 40 units SQ PM 09/16/20 09/16/20 History units/mL 10mL vial] Allergies Allergy/AdvReac Type Severity Reaction Status Date / Time No Known Allergies Allergy Verified 06/07/19 16:23 Exam Vital signs and Labs for Last 24 Hours: Temp Pulse Resp BP Pulse Ox 98.0 F 86 20 122/70 92 L 09/18/20 11:44 09/18/20 11:44 09/18/20 11:44 09/18/20 11:44 09/18/20 11:44 [place]
--- NOTE | 2020-09-18 15:28 | HMH.PTEV ---
Physical Therapy Evaluation Rehab PT IP Evaluation Start: 09/18/20 09:34 Freq: ONCE Status: Active Protocol: Document 09/18/20 15:20 [facility] (Rec: 09/18/20 15:28 [facility] [id number]) Subjective/History History History Patient is a 65 year old male admitted to [facility] 09/15/20 after a visit to ED secondary to altered mental status. Tests indicated sepsis and possible UTI. Patient lives at home with and does not require AD for ambualtion per patient report. Patient was able to achieve EOB independently, but refused to stand or ambulate. Subjective Subjective I just feel weak in my legs. Rehab PT IP Eval Objective Appearance Patient Behavior Cooperative,Aggressive Patient Orientation Place,Name,Day of Week Difficulty following instructions none Speech Pattern Clear Ambulation Patient Able to Ambulate Yes Balance Dynamic Sitting Balance Ability Good Transfers Bed Transfer Ability Independent ROM All Extremities PT ROM Status WFL MMT All Extremities PT MMT WFL Rehab PT IP prob,goals,plan Problems Date of Evaluation: 09/18/20 PT IP Problems Transfers,Gait,Balance,Self care,Safety Rehab Potential Rehab Potential Good Equipment Needs Assistive Devices Rolling / Wheeled Walker Plan PT Intervention Plan Bed Mobility,Transfers,Gait, Balance,Self care,Safety, Therapeutic Exercise PT Plan Frequency BID Duration LOS Discharge Goals Sit to Stand Chair Transfer Ability Contact Guard/Hand Hold Ambulation Assistive Device Rolling Walker Ambulation Distance (feet) 50 Discharge Plan PT Discharge Plan DC to home with caregiver when medically stable. G -code Required No Eval Complexity Eval Charge Codes 03517 - High Complexity PHYSICIAN CERTIFICATION: I certify the specified therapy services for Indra Murray are required, authorized, and reviewed every 30 days.
[2020-09-18 16:43] LABS: POC Glucose,Bedside 94 (70-110)
--- NOTE | 2020-09-18 18:22 | PC.NURSE ---
Pt has rested intermittently t/o shift. Pt c/o pain x2 medicated per MAR. Pt voiding per urinal. Dr kiser to see pt and explained procedure that is scheduled for tomorrow. Consent reviewed with patient and . verbal consent obtained for cystoscopy with right stent placement. VSS. LS CTA. Will continue to monitor.
--- NOTE | 2020-09-18 19:28 | PC.NURSE ---
Sputum cup placed at bedside
[2020-09-18 21:24] LABS: POC Glucose,Bedside 96 (70-110)
[2020-09-19 00:03] LABS: POC Glucose,Bedside 117 (70-110)
--- NOTE | 2020-09-19 00:11 | PC.NURSE ---
Rapid Response Red called at 2335 Overhead Code Blue called at 2336 overhead 2336 CPR initiated by Carmenza, RN 2337 Monserrat, RT at bedside to oxygenate via ambu bag, unable to obtain vitals, pulse, bp and oxygen saturation not registering. 2338 pulse check - Asystole, CPR restarted unable to obtain vitals, pulse, bp and oxygen saturation not registering. 2338 1mg Epi given IVP xonce, CPR taken over by MIHAELA Rankin unable to obtain vitals, pulse, bp and oxygen saturation not registering. 2340 pulse check - Asystole, 1mg Atropine given, CPR restarted by MIHAELA Cotton 2341 1mg Epi given IVP xonce, unable to obtain vitals, pulse, bp and oxygen saturation not registering. 2342 pulse check, asystole. No vitals obtainable. Pt Code Status is a DNI, Dr Weaver called TOD at 2342. Family notified by MIHAELA Cotton at 2345 of critical change in pt condition, stated she was 30 minutes away but would head here. Dr Murray notified of code blue and TOD 2350. LEO contacted at 0000.
--- NOTE | 2020-09-19 00:36 | HMH.DEATH ---
Pronouncement Note - Date and Time of Date of : 09/18/20 Time of : 23:42 - PCOD Preliminary cause of : Urosepsis - Additional Data Confirmation of : no pulse, no respirations, no heart sounds Family: contacted Attending/PCP notified?: Yes Attending physician: Vazquez Randle MD Was code activated?: Yes Autopsy requested?: No compliance examiner notified?: No Organ bank notified?: Yes Advance directives: Yes (dni)
--- NOTE | 2020-09-19 00:38 | [facility].RR ---
Acute Rapid Response Note - Subjective Date Responded: 09/18/20 Time Responded: 23:30 Provider Note: code blue - Objective Findings: Vital Signs - Last 4 Hours Temperature 97.8 F 09/18/20 20:00 Temperature Source Oral 09/18/20 20:00 Pulse Rate 57 L 09/18/20 20:00 Respiratory Rate 18 09/18/20 20:00 Blood Pressure 159/81 H 09/18/20 20:00 Blood Pressure Mean 107 09/18/20 20:00 Blood Pressure Source Automatic Cuff 09/18/20 20:00 Blood Pressure Position Supine 09/18/20 15:28 02 Sat by Pulse Oximetry 94 L 09/18/20 20:00 Oxygen Delivery Method 09/18/20 20:00 Oxygen Flow Rate (LPM) 2 09/17/20 09:00 Lab Results for Past 12 Hours 09/18/20 23:37: POC Glucose 117 H 09/18/20 20:42: POC Glucose 96 09/18/20 16:18: POC Glucose 94 pt with no resp and no pulse and asystolic on monitor and acls protocol with no resp and pronounced at 2342 Rapid Response Exam - General General appearance: other (code blue) - Head Head exam: atraumatic - Eye Eye exam: Present: other (fixed) - ENT ENT exam: Present: other (no acute changes ) - Neck Neck exam: Present: trachea midline - Respiratory Respiratory exam: Present: respiratory distress, other (no resp) - Cardiovascular Cardiovascular exam: Present: other (no pulse ) - Abdominal Exam Abdominal exam: Present: soft - Extremities Exam Extremities exam: Present: pedal edema - Neurological Exam Neurological exam: Present: other (nonresponsive ) - Skin Skin exam: Absent: rash RR Procedures/Assess/Plan - Assessment and plan all Dx Assessment and Plan for all problems:: code blue and
--- NOTE | 2020-09-24 15:18 | HMH.DCSUM ---
General - General Admission date:: 09/15/20 <Vazquez Randle - 11/05/20 22:46> 09/15/20 <DyanAlta - 09/24/20 15:26> Discharge date: 09/19/20 <SouleymaneAlta davis - 09/24/20 15:26> HPI HPI: The patient presented to the emergency department via EMS due to altered mental status. The patient's work-up revealed that the patient was febrile. His urine looked very cloudy. Therefore he was empirically treated for urosepsis. A chest x-ray was obtained and showed a right sided infiltrate consistent with pneumonia. He also has an elevated white blood cell count. His renal functions have worsened since last year. His blood pressure appears to be stable. His potassium was elevated but he has no peaked T waves on EKG. He was hyperglycemic. Appears that the patient is suffering from early sepsis without septic shock. He has been given empiric antibiotics for pneumonia as well as urinary tract infection. He will be admitted to Dr. Randle's service. (above as per ER physician) The patient's states he has not felt well for the past week. She states a few weeks ago he did notice some blood in his urine, but it seemed to improve and she could not get him to go to the doctor. He states he had blood in his urine again today. He has had some nausea, vomiting, and diarrhea since yesterday off-and-on. He has not had anything to eat for 2 days. He is complaining of some pain in his right upper quadrant and epigastric area. He states he has had a slight cough but no other respiratory symptoms. He feels extremely weak and can hardly get out of bed. <SouleymaneAlta davis - 09/24/20 15:26> Hospital Course Hospital Course: The patient's initial chest x-ray showed a right lower lobe pneumonia. He was started on IV fluids due to dehydration and renal insufficiency and was continued on IV antibiotics. An amylase and lipase as well as a CT of the abdomen and pelvis were both ordered. The patient did have a left anterior axillary mass which would need further evaluation to rule out cancer. He was started on IV Protonix for prophylaxis due to his history of peptic ulcer disease. 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 He did have a right pleural effusion as well as a left subpectoral axillary mass measuring 7.7 x 7.3 cm which was a concern for malignancy. His amylase and lipase returned normal and his lactic acid did normalize. It was felt the findings on his chest x-ray were due to atelectasis rather than pneumonia based on the CT results. His antibiotic regimen was adjusted to include meropenem and vancomycin. The patient had no further vomiting and did receive morphine for pain. His white blood cell count and liver functions improved. His BUN and creatinine however were further elevated. He was able to tolerate liquids and clinically appeared to be improving. His blood and urine cultures were growing gram-negative rods and a urology consult was placed. He was seen by the urologist who wanted to place a right-sided stent to ensure adequate drainage of the right collecting system and planned to do this the next day. On the evening of 09/18/2020, a CODE BLUE was called as the patient had no respirations and no pulse as well as asystole on the monitor. ACLS protocol was followed but the patient was pronounced at 2342. <Alta Zaidi - 09/24/20 15:26> Objective Vital signs: Temp Pulse Resp BP Pulse Ox 97.8 F 57 L 18 159/81 H 94 L 09/18/20 20:00 09/18/20 20:00 09/18/20 20:00 09/18/20 20:00 09/18/20 20:00 <RaziaVazquez Pankaj - 11/05/20 22:46> Temp Pulse Resp BP Pulse Ox 97.8 F 57 L 18 159/81 H 94 L 09/18/20 20:00 09/18/20 20:00 09/18/20 20:00 09/18/20 20:00 09/18/20 20:00 <Alta Zaidi - 09/24/20 15:26> Narrative: - Constitutional no acute distress - *Routine HEENT Exam Head: Present: normocephalic,
== END 2020-09-19 03:03 | disposition expired | DRG 872 ==
LOC: ER 14:11 → 2ND 14:38
PROVIDERS: Admitting Provider Family Medicine; Emergency Provider Emergency Medicine; PCP Physician Assistant; Visit Provider Family Medicine
DX: A41.9 Sepsis, unspecified organism (principal); I50.32 Chronic diastolic (congestive) heart failure; N17.9 Acute kidney failure, unspecified; N12 Tubulo-interstitial nephritis, not specified as acute or chronic; Z79.4 Long term (current) use of insulin; I11.0 Hypertensive heart disease with heart failure; I27.20 Pulmonary hypertension, unspecified; R22.30 Localized swelling, mass and lump, unspecified upper limb; E11.51 Type 2 diabetes mellitus with diabetic peripheral angiopathy without gangrene; E11.65 Type 2 diabetes mellitus with hyperglycemia; Z86.718 Personal history of other venous thrombosis and embolism; E87.5 Hyperkalemia; E11.40 Type 2 diabetes mellitus with diabetic neuropathy, unspecified; E78.5 Hyperlipidemia, unspecified; Z87.891 Personal history of nicotine dependence
CPT/HCPCS: 36415; 71045; 74176; 80048; 80053; 81001; 82150; 82962; 83605; 83690; 85007; 85025; 87040; 87077; 87086; 87088; 87186; 93005; 96365; 96372; 96375; 97163; 97166; 99284; J0456; J2185; J2405; J3370; U0003